=== PATIENT | female | born 1990 | race Caucasian/White ===

== ENCOUNTER 2024-02-04 18:16 | Inpatient (IN) | payer OTHER ==
[~2024-02-04] VITALS: Ht 157.5 cm; Wt 69.3 kg
[2024-02-04 21:00] VITALS: BP 118/68; PULSE 105; RESP 19; TEMP 99; O2SAT 99
[2024-02-04 21:41] VITALS: PULSE 77; RESP 18; O2SAT 95
[2024-02-04] MEDS ORDERED: THIA100T10 GT (22:05)
[2024-02-04] MEDS ORDERED: SPIR25TA8 PO (22:05)
[2024-02-04] MEDS ORDERED: FOLI-119 PO (22:05)
[2024-02-05] VITALS (10 sets, daily range): BP systolic 99–112; BP diastolic 54–70; PULSE 72–95; RESP 16–18; TEMP 97.1–98.2; O2SAT 95–98
[2024-02-05] MEDS ORDERED: IBUPROFEN 600 MG TAB PO PRN (05:00)
[2024-02-05] MEDS ORDERED: DOCUSATE SOD 100 MG CAP PO PRN (05:00)
[2024-02-05] MEDS ORDERED: NITROGLYCERIN 0.4 MG SL TAB SL PRN (05:00)
[2024-02-05] MEDS ORDERED: MORPHINE SULFATE INJ 2 MG/ml SYRG IV PRN (05:00)
[2024-02-05] MEDS ORDERED: ONDANSETRON HCL 4 MG/2 ML VIAL IV PRN (05:00)
[2024-02-05 05:59] LABS: Eosinophils # (auto) 0.1 10 ^3/uL (0-0.8); Red Cell Distribution Width 15.9 % (11.8-14.3); White Blood Cell 4.9 10^3/uL (4.4-10.8)
[2024-02-05 06:02] LABS: Basophils # (auto) 0.1 10 ^3/uL (0-0.2); Basophils % (auto) 1.1 % (0.0-2.0); Eosinophils % (auto) 2.8 % (0.0-7.0); Hematocrit 20.7 % (36.0-46.0); Lymphocytes # (auto) 1.8 10 ^3/uL (0.4-5.4); Mean Corpuscular Hgb Conc. 32.9 g/dL (32.0-36.0); Mean Corpuscular Volume 106.3 fL (80.0-100.0); Monocytes # (auto) 0.9 10 ^3/uL (0-1.3); Monocytes % (auto) 17.6 % (0.0-12.0); Neutrophils % (auto) 41.5 % (37.0-80.0); Red Blood Cells 1.95 10^6/uL (4.0-5.20)
[2024-02-05 06:16] LABS: Alanine Aminotransferase 31 U/L (7-40); Albumin 2.9 g/dL (3.2-4.8); Alkaline Phosphatase 97 U/L (46-116); Anion Gap 4 (5-15); Aspartate Aminotransferase 85 U/L (13-40); Calcium 8.5 mg/dL (8.7-10.4); Carbon Dioxide 28 mmol/L (20-30); Chloride 100 mmol/L (98-107); Glucose 92 mg/dL (74-106); Potassium 3.6 mmol/L (3.5-5.1); Sodium 132 mmol/L (136-145)
[2024-02-05 06:17] LABS: Bilirubin, Total 2.1 mg/dL (0.2-1.0); Total Protein 5.6 g/dL (5.7-8.2)
[2024-02-05 06:18] LABS: Hemoglobin 6.8 g/dL (12.2-16.2)
[2024-02-05 06:20] LABS: BUN/Creatinine Ratio 7.7 (10.0-20.0); Blood Urea Nitrogen < 5 mg/dL (9-23)
[2024-02-05 06:46] LABS: Anisocytosis Slight; Hypochromia Moderate; Macrocytosis Slight; Platelet Estimate Adequate; Target Cell FEW
[2024-02-05 07:43] LABS: Beta HCG, Quantitative 0.5 mIU/mL (1.5-4.2)
[2024-02-05 07:44] LABS: Thyroid Stimulating Hormone 1.6 uIU/mL (0.55-4.78)
[2024-02-05] MEDS: SODIUM CHLORIDE 0.9% 1,000 ML IV SCH (07:46)
[2024-02-05 07:56] LABS: Blood Alcohol < 3.0 mg/dL (<10); Triglycerides 50 mg/dL (< 150)
[2024-02-05 07:57] LABS: LDL Cholesterol 94 mg/dL (< 100)
[2024-02-05 07:58] LABS: Cholesterol 170 mg/dL (< 200); HDL Cholesterol 50 mg/dL (40-59)
[2024-02-05 08:16] LABS: INR 1.34 (0.9-1.15); Partial Thromboplastin Time 29.3 SEC (24.5-34.5); Prothrombin Time 13.9 sec (9.3-11.8)
[2024-02-05 08:59] LABS: Lipase 93 U/L (12-53)
[2024-02-05] MEDS: HYDROcodone-ACET 5/325MG TAB PO PRN (09:46)
[2024-02-05] MEDS: PANTOPRAZOLE 40 MG/10 ML VIAL INJ IV ONE ×2 (11:34→11:45)
[2024-02-05] MEDS: FOLIC ACID 1 MG TAB PO ONE (11:35)
[2024-02-05] MEDS: SPIRONOLACTONE 25 MG TAB PO ONE ×2 (11:35→22:35)
[2024-02-05] MEDS: OCTREOTIDE ACETATE 500 MCG in SODIUM CHL 0.9% 99 ML IV SCH (11:45)
[2024-02-05] MEDS: FUROSEMIDE 20 MG/2 ML VIAL IV ONE ×2 (11:45→16:51)
[2024-02-05] MEDS: OCTREOTIDE ACETATE 100 MCG in SODIUM CHL 0.9% 50 ML IV ONE (11:45)
[2024-02-05 18:38] LABS: Hemoglobin 8.7 g/dL (12.2-16.2)
[2024-02-05 22:17] LABS: Hematocrit 25.5 % (36.0-46.0); Hemoglobin 8.4 g/dL (12.2-16.2)
[2024-02-05] MEDS: PANTOPRAZOLE 40 MG/10 ML VIAL INJ IV SCH (22:35)
[2024-02-05] MEDS: cefTRIAXone 1GM/50ML D5W 50 ML IV ONE (22:35)
[2024-02-06] VITALS (10 sets, daily range): BP systolic 86–106; BP diastolic 47–62; PULSE 16–103; RESP 14–22; TEMP 97.8–98.3; O2SAT 95–100
[2024-02-06 06:03] LABS: Basophils # (auto) 0.1 10 ^3/uL (0-0.2); Eosinophils # (auto) 0.2 10 ^3/uL (0-0.8); Monocytes # (auto) 0.8 10 ^3/uL (0-1.3); Monocytes % (auto) 16.7 % (0.0-12.0); Neutrophils # (auto) 1.6 10 ^3/uL (1.6-8.6)
[2024-02-06 06:05] LABS: Basophils % (auto) 1.8 % (0.0-2.0); Eosinophils % (auto) 3.9 % (0.0-7.0); Hematocrit 25.9 % (36.0-46.0); Hemoglobin 8.6 g/dL (12.2-16.2); Lymphocytes # (auto) 2.2 10 ^3/uL (0.4-5.4); Lymphocytes % (auto) 44.8 % (10.0-50.0); Mean Corpuscular Hemoglobin 33.6 pg (28.0-32.0); Neutrophils % (auto) 32.8 % (37.0-80.0); Nucleated Red Blood Cells % 0.2 %; Red Blood Cells 2.54 10^6/uL (4.0-5.20); Red Cell Distribution Width 19.1 % (11.8-14.3)
[2024-02-06 06:16] LABS: Alanine Aminotransferase 27 U/L (7-40); Albumin 2.7 g/dL (3.2-4.8); Alkaline Phosphatase 73 U/L (46-116); Anion Gap 3 (5-15); Aspartate Aminotransferase 73 U/L (13-40); Calcium 8.4 mg/dL (8.7-10.4); Carbon Dioxide 29 mmol/L (20-30); Chloride 101 mmol/L (98-107); Glucose 118 mg/dL (74-106); Magnesium 1.9 mg/dL (1.6-2.6); Potassium 4.2 mmol/L (3.5-5.1); Sodium 133 mmol/L (136-145)
[2024-02-06 06:17] LABS: Bilirubin, Total 2.7 mg/dL (0.2-1.0); Total Protein 5.3 g/dL (5.7-8.2)
[2024-02-06 06:21] LABS: BUN/Creatinine Ratio 7.1 (10.0-20.0); Blood Urea Nitrogen < 5 mg/dL (9-23)
[2024-02-06] MEDS: OMNIPAQUE 12mg/ml 500ml ORAL SOLUTION PO ONE (07:15)
[2024-02-06] MEDS: cefTRIAXone 1GM/50ML D5W 50 ML IV SCH (08:51)
[2024-02-06] MEDS: FUROSEMIDE 20 MG/2 ML VIAL IV SCH (10:00)
[2024-02-06] MEDS ORDERED: PANTOPRAZOLE 40 MG/10 ML VIAL INJ IV SCH (10:00)
[2024-02-06] MEDS ORDERED: FUROSEMIDE 20 MG/2 ML VIAL IV SCH (10:00)
[2024-02-06] MEDS ORDERED: SPIRONOLACTONE 25 MG TAB PO SCH ×2 (10:00)
[2024-02-06 10:07] LABS: Hematocrit 25.3 % (36.0-46.0); Hemoglobin 8.2 g/dL (12.2-16.2)
[2024-02-06] MEDS: SPIRONOLACTONE 25 MG TAB PO SCH (11:16)
[2024-02-06] MEDS: FOLIC ACID 1 MG TAB PO SCH (11:16)
[2024-02-06] MEDS: THIAMINE HCL 100 MG TAB PO SCH (11:16)
[2024-02-06] MEDS ORDERED: IOHEXOL 300 MG/ML 100ML BOTTLE IJ ONE (12:59)
[2024-02-06] MEDS ORDERED: ALBUMIN 25% 50 ML IV SCH (14:15)
[2024-02-06] MEDS ORDERED: PROPOFOL 10 MG/ML 20 ML IV ONE (15:24)
[2024-02-06] MEDS ORDERED: MIDAZOLAM HCL 2MG/2ML 2ml VIAL (1mg/ml) ONE ×2 (15:24→16:15)
[2024-02-06] MEDS: ONDANSETRON HCL 4 MG/2 ML VIAL IV ONE (15:30)
[2024-02-06 22:26] LABS: Hematocrit 28.8 % (36.0-46.0); Hemoglobin 9.2 g/dL (12.2-16.2)
[2024-02-07] VITALS (8 sets, daily range): BP systolic 85–122; BP diastolic 58–77; PULSE 16–105; RESP 12–20; TEMP 97.3–98.2; O2SAT 95–100
[2024-02-07 05:09] LABS: White Blood Cell 5.5 10^3/uL (4.4-10.8)
[2024-02-07 05:11] LABS: Band Neutrophils % (manual) 0; Basophils % (manual) 0 (0.0-2.0); Blast Cells 0; Hematocrit 25.2 % (36.0-46.0); Hemoglobin 8.3 g/dL (12.2-16.2); Mean Corpuscular Hemoglobin 33.4 pg (28.0-32.0); Mean Corpuscular Hgb Conc. 32.9 g/dL (32.0-36.0); Mean Corpuscular Volume 101.7 fL (80.0-100.0); Metamyelocytes % 0; Myelocytes % 0; Promyelocytes % 0; Reactive Lymphocytes 0; Red Blood Cells 2.48 10^6/uL (4.0-5.20); Red Cell Distribution Width 18.9 % (11.8-14.3)
[2024-02-07 05:18] LABS: Alanine Aminotransferase 25 U/L (7-40); Albumin 2.5 g/dL (3.2-4.8); Alkaline Phosphatase 83 U/L (46-116); Anion Gap 6 (5-15); Aspartate Aminotransferase 62 U/L (13-40); Calcium 7.9 mg/dL (8.7-10.4); Carbon Dioxide 25 mmol/L (20-30); Chloride 104 mmol/L (98-107); Glucose 105 mg/dL (74-106); Potassium 4.2 mmol/L (3.5-5.1); Sodium 135 mmol/L (136-145)
[2024-02-07 05:19] LABS: Bilirubin, Total 1.5 mg/dL (0.2-1.0); Total Protein 5.2 g/dL (5.7-8.2)
[2024-02-07 05:35] LABS: BUN/Creatinine Ratio 6.8 (10.0-20.0); Blood Urea Nitrogen < 5 mg/dL (9-23)
[2024-02-07 06:55] LABS: Eosinophils % (manual) 5 (0-7); Monocytes % (manual) 18 (0-12)
[2024-02-07 06:56] LABS: Anisocytosis Slight; Lymphocytes % (manual) 25 (10.0-50.0); Macrocytosis Slight; Platelet Estimate Adequate
[2024-02-07 08:49] LABS: Hepatitis B Surface Antigen Negative (Negative)
[2024-02-07 09:12] LABS: Hepatitis C Antibody Negative (Negative)
[2024-02-07 09:17] LABS: Folate (Folic Acid) 15.58 ng/mL (>5.38)
[2024-02-07 10:42] LABS: Hemoglobin 9.2 g/dL (12.2-16.2)
[2024-02-07 10:44] LABS: Hematocrit 28.6 % (36.0-46.0)
[2024-02-07] MEDS: LACTULOSE 20Gm/30ML SOLN PO PRN (14:53)
[2024-02-07 22:53] LABS: Hematocrit 26.4 % (36.0-46.0); Hemoglobin 8.7 g/dL (12.2-16.2)
[2024-02-08] VITALS (7 sets, daily range): BP systolic 101–124; BP diastolic 64–80; PULSE 73–85; RESP 16–18; TEMP 36.5; O2SAT 94–99
[2024-02-08 07:38] LABS: Alanine Aminotransferase 20 U/L (7-40); Albumin 2.6 g/dL (3.2-4.8); Alkaline Phosphatase 93 U/L (46-116); Anion Gap 5 (5-15); Aspartate Aminotransferase 58 U/L (13-40); Calcium 8.1 mg/dL (8.7-10.4); Carbon Dioxide 27 mmol/L (20-30); Chloride 106 mmol/L (98-107); Glucose 110 mg/dL (74-106); Potassium 4.4 mmol/L (3.5-5.1); Sodium 138 mmol/L (136-145)
[2024-02-08 07:39] LABS: Bilirubin, Total 1.4 mg/dL (0.2-1.0)
[2024-02-08 07:43] LABS: BUN/Creatinine Ratio 6.9 (10.0-20.0); Blood Urea Nitrogen < 5 mg/dL (9-23)
[2024-02-08 07:50] LABS: Hematocrit 25.4 % (36.0-46.0); Hemoglobin 8.1 g/dL (12.2-16.2); Mean Corpuscular Hemoglobin 32.5 pg (28.0-32.0); Mean Corpuscular Hgb Conc. 31.8 g/dL (32.0-36.0); Mean Corpuscular Volume 102.3 fL (80.0-100.0); Red Blood Cells 2.49 10^6/uL (4.0-5.20); White Blood Cell 4.5 10^3/uL (4.4-10.8)
[2024-02-08 07:52] LABS: Band Neutrophils % (manual) 0; Basophils % (manual) 0 (0.0-2.0); Blast Cells 0; Metamyelocytes % 0; Myelocytes % 0; Promyelocytes % 0; Reactive Lymphocytes 0
[2024-02-08 09:19] LABS: Eosinophils % (manual) 3 (0-7); Lymphocytes % (manual) 29 (10.0-50.0); Monocytes % (manual) 19 (0-12); Platelet Estimate Adequate
[2024-02-08] MEDS: FUROSEMIDE 40 MG TAB PO SCH (09:58)
[2024-02-08 13:21] LABS: Hematocrit 27.8 % (36.0-46.0)
[2024-02-08] MEDS ORDERED: FURO40TA4 PO (15:42)
[2024-02-08] MEDS ORDERED: SPIR25TA PO (15:42)
[2024-02-09 12:47] LABS: Anti-Nuclear Antibody Direct Negative (Negative)
== END 2024-02-08 18:50 | disposition home or self-care (01) | DRG 432 ==
LOC: WEST WING 21:00 → TELE-WESTW 02-05 07:45
PROVIDERS: ADMIT Internal Medicine Pulmonary Disease; ATTEND Internal Medicine Pulmonary Disease
PROC: 30233N1 Transfusion of Nonautologous Red Blood Cells into Peripheral Vein, Percutaneous Approach (ICD-10-PCS; principal; 2024-02-05)
PROC: 0DB68ZX Excision of Stomach, Via Natural or Artificial Opening Endoscopic, Diagnostic (ICD-10-PCS; 2024-02-06)
DX: K70.31 Alcoholic cirrhosis of liver with ascites (principal); I85.11 Secondary esophageal varices with bleeding; D68.9 Coagulation defect, unspecified; E44.0 Moderate protein-calorie malnutrition; K29.70 Gastritis, unspecified, without bleeding; E80.6 Other disorders of bilirubin metabolism; F17.210 Nicotine dependence, cigarettes, uncomplicated; R74.01 Elevation of levels of liver transaminase levels; D53.9 Nutritional anemia, unspecified; Z68.27 Body mass index [BMI] 27.0-27.9, adult; Z79.899 Other long term (current) drug therapy
CPT/HCPCS: 36415; 71045; 74177; 76705; 80053; 80061; 80320; 82140; 82248; 82607; 82728; 82746; 83540; 83550; 83615; 83690; 83735; 84443; 84702; 85007; 85014; 85018; 85025; 85027; 85045; 85610; 85730; 86038; 86703; 86803; 86850; 86900; 86901; 86920; 87081; 87340; G0378; J2250; J2470; J2704

== ENCOUNTER 2024-07-17 18:28 | Inpatient (IN) | payer OTHER ==
[~2024-07-17] VITALS: Ht 157.5 cm; Wt 58.3 kg
[~2024-07-17 18:28] MED LIST: FOLI-119 PO; FURO40TA4 PO; SPIR25TA PO; THIA100T10 GT
--- NOTE | 2024-07-17 18:45 | ED.PDOC ---
GI ASSESSMENT HPI Comments 33-year-old female presents to the ED via EMS for a chief complaint of nausea and vomiting associated with abdominal pain. Patient was taken [facility] and transported to this ED for higher level care. Patient admits to drinking gin last night and woke up with nausea and dark red, coffee ground emesis that started at 9:30am. Patient admits to drinking Gin daily. She denies any other symptoms or pain at this time. No substance use reported. Patient reports that she has had multiple endoscopies, last one was about 3-6 months ago at [facility] to repair a tear. Patient also reports absence of her menstrual cycle for three years now. Patient had the following work up done at [facility]: - Chest X ray with no active pulmonary disease - Diagnose of GI bleed, hypomagnesium, ETOH withdrawal, nausea and vomiting - Patient was given the following: magnesium 2 grams, Protonix 80mg IV, Octreotide bolus 50mcg, Thiamine, Normal saline, and 2mg of Ativan - Patient's following lab results: HGB of 11.6, Hematocrit of 34.2, Platelet count of 109, CIWA 15, INR 1.79, ALT 48, AST of 48, and Alcohol level of 173. - test was negative Patient's home prescriptions included: Lasix, spirolactone Upon arrival to our facility with the nursing staff from the outside facility, patient was noted to have another episode of hematemesis here in the ED. patient was tachycardic and pale and weak. Patient was consented for blood transfusion. Past medical history: Anemia, liver cirrhosis, multiple blood transfusions, abnormal pap smear, and insomnia Past surgical history: Endoscopies Vital signs Blood pressure: 116/63 Temperature: 98.7 F Heart rate: 110 SpO2: 96% RA RR: 18 mathis, HPI: Poor Historian. REVIEW OF SYSTEMS: CONSTITUTIONAL: Denies acute: fever, diaphoresis, chills, HEAD: Denies acute: headache, photophobia Eyes: Denies acute: Double vision, vision loss, eye pain, eye discharge. EARS: Denies acute: tinnitus, hearing loss, ear discharge, ear pain, THROAT: Denies acute: sore throat, swelling, difficulty swallowing , pain with swallowing, change in voice. NECK: Denies acute: neck pain, neck swelling, stiff neck. HEART: Denies acute : chest pain, palpitations, LUNGS: Denies acute: SOB, wheezing, cough, hemoptysis ABDOMEN: Denies acute: diarrhea, melena , , hematochezia SKIN: Denies acute: rash, redness, lesions, itchiness. EXTREMITIES: Denies acute: calf pain, numbness, tingling, weakness, denies pain in extremity. Denies acute: Low back pain. Neuro: Denies acute: focal neurological deficit, motor or sensory focal neurological deficit, tremors, seizure like activity, confusion, dizziness, change in mental status, loss of bowel or bladder function, cauda equina like symptoms. : Denies acute: dysuria, hematuria, flank pain, increase in urinary frequency. PSYCH: Denies acute: hallucination, suicidal ideation, homicidal ideation. FEMALE: Denies acute: abnormal vaginal bleeding, foul odor, unusual discharge. PHYSICAL EXAM: General: no acute distress, awake and alert. Head: normocephalic, atraumatic. Neck: supple, trachea is midline, no swelling. Throat: Normal phonation. Eyes:, no erythema, no purulent discharge, no proptosis, no icterus. Heart: regular tachycardic, no significant murmur appreciated. Lungs: no apparent respiratory distress, Able to speak in full sentences. No wheezing, no rhonchi, no crackles. No stridors Clear to auscultation bilaterally. Abdomen: Minimal epigastric tender to palpation, non distended, soft, no guarding, no rebound, + bowel sounds. Neuro: Awake, Alert, oriented to name, self, situation, follows commands GCS=15. Speech is normal. Skin: no petechia, no purpura, no cyanosis, noted-pale, not jaundice. Lower extremities: --no - Pitting edema no deformity, no focal swelling, no calf TTP. Makes eye contact. moves all four extremities. Face: no apparent facial droop. 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, Allergies Allergies: Coded Allergies: NO KNOWN ALLERGIES (Unverified , 02/04/24) Home Meds Active Scripts Spironolactone (Aldactone) 25 Mg Tab, 100 MG PO DAILY for 30 Days, #120 TAB 2 Refills Prov:JOSE KO RESIDENT 02/08/24 Furosemide (Furosemide) 40 Mg Tab, 40 MG PO DAILY for 30 Days, #30 TAB 2 Refills Prov:JOSE KO RESIDENT 02/08/24 Reported Medications Thiamine Hcl (VITAMIN B-1) 100 Mg Tb, 100 MG GT, TAB 02/04/24 Folic Acid (Folic Acid) 1 Mg Tab, 1 MG PO, TAB 02/04/24 Information Source: Patient, Emergency Med Personnel Mode of Arrival: EMS Timing: Days Duration: Since onset Past Medical History PAST MEDICAL HISTORY: Anemia, Liver Past Medical History (Other): Blood transfusions Surgical History (Other): Endoscopies 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 Was a procedure done?: No GI differential Dx Differential Diagnosis: Bowel Obstruction, Esophageal rupture, Esophagitis, Gastritis/PUD, Gastroenteritis, GI hemorrhage, Hepatitis, Inflammatory BD, Ischemic Bowel, Pancreatitis, Dehydration, Electrolyte Imbalance, Hypovolemia, Ischemic Bowel, Anemia, Esophageal Varicies, Stress Ulcer, Other X-Ray, Labs, Meds, VS Vital Signs Date Time Temp Pulse Resp B/P (MAP) Pulse Ox O2 Delivery O2 Flow Rate FiO2 07/17/24 18:49 98.7 110 18 116/63 (80) 96 Lab Test 07/17/24 18:58 Range/Units White Blood Count 7.5 4.4-10.8 10^3/uL Red Blood Count 2.62 L 4.0-5.20 10^6/uL Hemoglobin 9.1 L 12.2-16.2 g/dL Hematocrit 26.8 L 36.0-46.0 % Mean Corpuscular Volume 102.4 H 80.0-100.0 fL Mean Corpuscular Hemoglobin 34.9 H 28.0-32.0 pg Mean Corpuscular Hemoglobin Concent 34.1 32.0-36.0 g/dL Red Cell Distribution Width 18.4 H 11.8-14.3 % Platelet Count 93 L 140-450 10^3/uL Mean Platelet Volume 8.1 6.9-10.8 fL Neutrophils (%) (Auto) 64.1 37.0-80.0 % Lymphocytes (%) (Auto) 20.3 10.0-50.0 % Monocytes (%) (Auto) 14.2 H 0.0-12.0 % Eosinophils (%) (Auto) 0.2 0.0-7.0 % Basophils (%) (Auto) 1.2 0.0-2.0 % Neutrophils # (Auto) 4.8 1.6-8.6 10 ^3/uL Lymphocytes # (Auto) 1.5 0.4-5.4 10 ^3/uL Monocytes # (Auto) 1.1 0-1.3 10 ^3/uL Eosinophils # (Auto) 0 0-0.8 10 ^3/uL Basophils # (Auto) 0.1 0-0.2 10 ^3/uL Nucleated Red Blood Cells 0.0 % Prothrombin Time 14.7 H 9.3-11.8 sec Prothrombin Time INR 1.44 H 0.9-1.15 Activated Partial Thromboplast Time 32.7 24.5-34.5 SEC Sodium Level 136 136-145 mmol/L Potassium Level 4.4 3.5-5.1 mmol/L Chloride Level 103 98-107 mmol/L Carbon Dioxide Level 24 20-31 mmol/L Anion Gap 9 5-15 Blood Urea Nitrogen 15 9-23 mg/dL Creatinine 0.73 0.550-1.02 mg/dL Glomerular Filtration Rate Calc 110 >90 mL/min BUN/Creatinine Ratio 20.5 H 10.0-20.0 Serum Glucose 121 H 74-106 mg/dL Lactic Acid Level 3.7 *H 0.4-2.0 mmol/L Calcium Level 7.6 L 8.7-10.4 mg/dL Magnesium Level 2.1 1.6-2.6 mg/dL Total Bilirubin 2.7 H 0.2-1.0 mg/dL Aspartate Amino Transferase (AST) 193 H 13-40 U/L Alanine Aminotransferase (ALT) 40 7-40 U/L Alkaline Phosphatase 69 46-116 U/L Troponin I High Sensitivity 16 </=34 ng/L Total Protein 5.6 L 5.7-8.2 g/dL Albumin 3.2 3.2-4.8 g/dL Lipase 62 H 12-53 U/L Plasma/Serum Blood Alcohol 24.9 H <10 mg/dL [facility] [id number] [facility] [address] Ph: [phone] DIAGNOSTIC IMAGING Diagnostic Imaging Report : [id number] Signed PATIENT: KEYUR MATHIS ACCT: [id number] UNIT: [id number] : 1990 LOC: ER ROOM / BED: / AGE / SEX: 33 / F ADM STATUS: REG ER SERVICE 1841 ORDERING PHYSICIAN: AINSLEY MENON DO PROCEDURE(s): CXRP - CHEST PORTABLE REASON: tachy, hematemesis, ORDER NUMBER(s): [id number], ACCESSION NUMBER(s): [id number] EXAM: XR Chest, 1 View CLINICAL INDICATION: tachy, hematemesis, TECHNIQUE: Frontal view of the chest. COMPARISON: XY CHEST PORTABLE on DOS: 02/05/24 FINDINGS: LUNGS AND PLEURAL SPACES: Unremarkable. No consolidation. No pneumothorax. HEART: Unremarkable. No cardiomegaly. MEDIASTINUM: Unremarkable. Normal mediastinal contour. BONES/JOINTS: Unremarkable. No acute fracture. OTHER FINDINGS: . . . IMPRESSION: No acute cardiopulmonary process. HS:Y ATED BY: EZRA DUFFY MD DICTATED DATE/TIME: 07/17/241916 SIGNED BY: EZRA DUFFY MD SIGNED DATE/TIME: 07/17/241916 CC: [place] [address] Ph: [phone] DIAGNOSTIC IMAGING Diagnostic Imaging Report : [id number] Signed with Tamia PATIENT: KEYUR MATHIS ACCT: [id number] UNIT: [id number] : 1990 LOC: TELE ROOM / BED: [address] [place] [address] AGE / SEX: 33 / F ADM STATUS: ADM IN SERVICE 210 ORDERING PHYSICIAN: AINSLEY MENON DO PROCEDURE(s): ABDL - ABDOMEN LIMITED REASON: hyperbili ORDER NUMBER(s): [id number], ACCESSION NUMBER(s): [id number] ADDENDUM ADDENDUM # 1 HS:Y ORIGINAL REPORT INDICATION: hyperbili TECHNIQUE: Multiple real-time sonographic images of the abdomen were obtained. COMPARISON: US ABDOMEN LIMITED on DOS: 02/07/24, US LIVER on DOS: 02/05/24 FINDINGS: Hepatic parenchyma suggests steatosis The liver measures 18.6 cm. No intrahepatic biliary ductal dilatation is noted. The gallbladder wall measures 0.29 cm and is unremarkable. Mobile stones and sludge. The common duct measures 0.5 cm and is unremarkable. No pericholecystic fluid is noted. Negative ultrasound Larkin's sign is elicited. The right kidney measures 9.4 cm. No hydronephrosis. The pancreas is normal by ultrasound IMPRESSION: 1. 18.6 cm liver with changes in the parenchyma suggesting steatosis. 2. Cholelithiasis and sludge. Negative ultrasound Larkin's sign is elicited. ATED BY: JOSSELYN JOYCE Jr., DO DICTATED DATE/TIME: 07/17/242332 SIGNED BY: JOSSELYN JOYCE Jr., DO SIGNED DATE/TIME: 07/17/242332 CC: INDICATION: hyperbili TECHNIQUE: Multiple real-time sonographic images of the abdomen were obtained. COMPARISON: US ABDOMEN LIMITED on DOS: 02/07/24, US LIVER on DOS: 02/05/24 FINDINGS: Hepatic parenchyma suggests steatosis The liver measures 18.6 cm. No intrahepatic biliary ductal dilatation is noted. The gallbladder wall measures 0.29 cm and is unremarkable. Mobile stones and sludge. The common duct measures 0.5 cm and is unremarkable. No pericholecystic fluid is noted. Negative ultrasound Larkin's sign is elicited. The right kidney measures 9.4 cm. No hydronephrosis. The pancreas is normal by ultrasound IMPRESSION: 1. 18.6 cm liver with changes in the parenchyma suggesting steatosis. 2. Cholelithiasis and sludge. Negative ultrasound Larkin's sign is elicited. ATED BY: JOSSELYN JOYCE Jr., DO DICTATED DATE/TIME: 07/17/242312 SIGNED BY: JOSSELYN JOYCE Jr., SIGNED DATE/TIME: 07/17/242312 CC: Time of 1ST Reevaluation: 18:41 Reevaluation 1ST: Unchanged Patient Education/Counseling: Diagnosis, Treatment Family Education/Counseling: No Family Present Comments Patient presented with the above HPI. abdominal pain workup was initiated. patient was found with the above mentioned diagnosis. the following medications were ordered: zofran, pantoprazole, morphine, NTG, IV fluids, octreotide acetate the following tests were ordered: LA, drug screen, blood alcohol, CMP, CBC, US abdomen, CXR Patient ED course and VS have been stabilized. Patient has been reassessed in the ED and remained in a stable condition. Pertinent incidental findings were discussed with the patient and/or family. Patient/family voices understanding and is agreeable with plan. Patient has been observed in the ED adequate length of time to insure im provement/stability. Escalation of care considered: Consideration of escalation to observation or admission Patient was ADMITTED to the medicine team for further evaluation and treatment of their presentation. All the reports of any imaging studies that were ordered by myself were reviewed by myself. Departure 1 Departure Time of Disposition: 19:17 Impression: Primary Impression: GI bleed Additional Impressions: Hematemesis Alcohol abuse Anemia Liver cirrhosis Thrombocytopenia Disposition: 09 ADMITTED INPATIENT Admit to: Tele Condition: Guarded Discharged With: Self Critical Care Note Critical Care Time?: Yes (1 hr-critical care time only) I personally scribed for AINSLEY MENON DO ([email or web address]) on 07/17/24 at 18:45. Electronically submitted by Teena Miller ([employer]). I personally scribed for AINSLEY MENON DO ([email or web address]) on 07/17/24 at 19:31. Electronically submitted by Teena Miller ([employer]). I personally scribed for AINSLEY MENON DO ([email or web address]) on 07/17/24 at 22:11. Electronically submitted by Chet Milian ([email or web address]). I personally scribed for AINSLEY MENON DO ([email or web address]) on 07/17/24 at 22:12. Electronically submitted by Chet Milian ([email or web address]). I personally scribed for AINSLEY MENON DO ([email or web address]) on 07/18/24 at 01:11. Electronically submitted by Chet Milian ([email or web address]). I personally scribed for AINSLEY MENON DO ([email or web address]) on 07/18/24 at 01:43. Electronically submitted by Chet Milian ([email or web address]). AINSLEY MENON DO Jul 17, 2024 18:45
--- NOTE | 2024-07-17 19:19 | DVH ---
EXAM: XR Chest, 1 View CLINICAL INDICATION: tachy, hematemesis, TECHNIQUE: Frontal view of the chest. COMPARISON: XY CHEST PORTABLE on DOS: 02/05/24 FINDINGS: LUNGS AND PLEURAL SPACES: Unremarkable. No consolidation. No pneumothorax. HEART: Unremarkable. No cardiomegaly. MEDIASTINUM: Unremarkable. Normal mediastinal contour. BONES/JOINTS: Unremarkable. No acute fracture. OTHER FINDINGS: . . . IMPRESSION: No acute cardiopulmonary process. HS:Y
[2024-07-17 19:25] LABS: Basophils # (auto) 0.1 10 ^3/uL (0-0.2); Eosinophils # (auto) 0 10 ^3/uL (0-0.8); Eosinophils % (auto) 0.2 % (0.0-7.0); Neutrophils # (auto) 4.8 10 ^3/uL (1.6-8.6); Red Blood Cells 2.62 10^6/uL (4.0-5.20)
[2024-07-17 19:26] LABS: Basophils % (auto) 1.2 % (0.0-2.0); Hematocrit 26.8 % (36.0-46.0); Hemoglobin 9.1 g/dL (12.2-16.2); Lymphocytes # (auto) 1.5 10 ^3/uL (0.4-5.4); Lymphocytes % (auto) 20.3 % (10.0-50.0); Mean Corpuscular Hemoglobin 34.9 pg (28.0-32.0); Mean Corpuscular Hgb Conc. 34.1 g/dL (32.0-36.0); Mean Corpuscular Volume 102.4 fL (80.0-100.0); Monocytes # (auto) 1.1 10 ^3/uL (0-1.3); Monocytes % (auto) 14.2 % (0.0-12.0); Neutrophils % (auto) 64.1 % (37.0-80.0); Platelet Count (auto) 93 10^3/uL (140-450); Red Cell Distribution Width 18.4 % (11.8-14.3); White Blood Cell 7.5 10^3/uL (4.4-10.8)
[2024-07-17 19:41] LABS: Alkaline Phosphatase 69 U/L (46-116); Anion Gap 9 (5-15); BUN/Creatinine Ratio 20.5 (10.0-20.0); Blood Alcohol 24.9 mg/dL (<10); Blood Urea Nitrogen 15 mg/dL (9-23); Carbon Dioxide 24 mmol/L (20-31); Chloride 103 mmol/L (98-107); Magnesium 2.1 mg/dL (1.6-2.6); Potassium 4.4 mmol/L (3.5-5.1)
[2024-07-17 19:43] LABS: Alanine Aminotransferase 40 U/L (7-40); Albumin 3.2 g/dL (3.2-4.8); Aspartate Aminotransferase 193 U/L (13-40); Bilirubin, Total 2.7 mg/dL (0.2-1.0); Calcium 7.6 mg/dL (8.7-10.4); Glucose 121 mg/dL (74-106); Sodium 136 mmol/L (136-145); Total Protein 5.6 g/dL (5.7-8.2)
[2024-07-17 19:45] LABS: Lactic Acid w/Reflex 3.7 mmol/L (0.4-2.0)
[2024-07-17] MEDS ORDERED: MORPHINE SULFATE INJ 2 MG/ml SYRG IV PRN (19:45)
[2024-07-17] MEDS ORDERED: ONDANSETRON HCL 4 MG/2 ML VIAL IV PRN (19:45)
[2024-07-17] MEDS ORDERED: NITROGLYCERIN 0.4 MG SL TAB SL PRN (19:45)
[2024-07-17 20:04] LABS: Lipase 62 U/L (12-53)
[2024-07-17 21:10] LABS: INR 1.44 (0.9-1.15); Partial Thromboplastin Time 32.7 SEC (24.5-34.5); Prothrombin Time 14.7 sec (9.3-11.8)
--- NOTE | 2024-07-17 22:06 | DVHHP2 ---
History of Present Illness Reason for Visit: GI bleed History of Present Illness 33 old female presents for GI bleed. Patient presented to outside facility with complaints one day history vomiting blood. Patient with a history of alcoholic liver cirrhosis reports drinking alcohol since yesterday. Today she had multiple episodes of hematemesis. She states having a blood transfusion a month ago. Denies melena. No cardiac or respiratory complaints. Past Medical History Liver cirrhosis Past Surgical History Denies Family History Noncontributory Smoke: No ALCOHOL: heavy Drugs: None Lives: with Family Review of Systems Review of Systems Review of systems are currently negative otherwise addressed in HPI. Allergies: Coded Allergies: NO KNOWN ALLERGIES (Unverified , 02/04/24) Medications Current Medications Medications Dose Ordered Sig/Hien Route Start Time Stop Time Status Last Admin Dose Admin Octreotide Acetate 500 mcg/ Sodium Chloride 100 ml @ 10 mls/hr Q10H IV 07/17/24 18:45 UNV Sodium Chloride 1,000 ml @ 80 mls/hr [id number] IV 07/17/24 19:45 UNV Ondansetron HCl 4 mg Q4HP PRN IV 07/17/24 19:45 UNV Nitroglycerin 0.4 mg Q5MINP PRN SL 07/17/24 19:45 UNV Morphine Sulfate 2 mg Q30M PRN IV 07/17/24 19:45 UNV Exam Vital Signs Vital Signs Date Time Temp Pulse Resp B/P (MAP) Pulse Ox O2 Delivery O2 Flow Rate FiO2 07/17/24 20:14 122 07/17/24 18:49 98.7 18 116/63 (80) 96 Exam Gen: 33-year-old female in mild distress. Skin: Warm, dry, normal color and texture, no rash. HEENT: Normocephalic atraumatic, mucous membranes moist and pink. Neck: Cervical and supraclavicular nodes normal without enlargement, trachea is midline, thyroid gland is normal without masses. Pulmonary: Clear to auscultation and percussion bilaterally. Cardiac: Sinus tachycardia Abdomen: Soft, nontender, nondistended, bowel sounds present all 4 quadrants, no guarding, no rigidity, no organomegaly. Extremities: No cyanosis, clubbing, no edema Neuro: Cranial nerves II through XII grossly intact, normal affect and speech, no focal motor deficits. Labs/Xrays ORDERING PHYSICIAN: AINSLEY MENON DO PROCEDURE(s): CXRP - CHEST PORTABLE REASON: tachy, hematemesis, ORDER NUMBER(s): [id number], ACCESSION NUMBER(s): [id number] EXAM: XR Chest, 1 View CLINICAL INDICATION: tachy, hematemesis, TECHNIQUE: Frontal view of the chest. COMPARISON: XY CHEST PORTABLE on DOS: 02/05/24 FINDINGS: LUNGS AND PLEURAL SPACES: Unremarkable. No consolidation. No pneumothorax. HEART: Unremarkable. No cardiomegaly. MEDIASTINUM: Unremarkable. Normal mediastinal contour. BONES/JOINTS: Unremarkable. No acute fracture. OTHER FINDINGS: . . . IMPRESSION: No acute cardiopulmonary process. HS:Y Labs Test 07/17/24 18:58 Range/Units White Blood Count 7.5 4.4-10.8 10^3/uL Red Blood Count 2.62 L 4.0-5.20 10^6/uL Hemoglobin 9.1 L 12.2-16.2 g/dL Hematocrit 26.8 L 36.0-46.0 % Mean Corpuscular Volume 102.4 H 80.0-100.0 fL Mean Corpuscular Hemoglobin 34.9 H 28.0-32.0 pg Mean Corpuscular Hemoglobin Concent 34.1 32.0-36.0 g/dL Red Cell Distribution Width 18.4 H 11.8-14.3 % Platelet Count 93 L 140-450 10^3/uL Mean Platelet Volume 8.1 6.9-10.8 fL Neutrophils (%) (Auto) 64.1 37.0-80.0 % Lymphocytes (%) (Auto) 20.3 10.0-50.0 % Monocytes (%) (Auto) 14.2 H 0.0-12.0 % Eosinophils (%) (Auto) 0.2 0.0-7.0 % Basophils (%) (Auto) 1.2 0.0-2.0 % Neutrophils # (Auto) 4.8 1.6-8.6 10 ^3/uL Lymphocytes # (Auto) 1.5 0.4-5.4 10 ^3/uL Monocytes # (Auto) 1.1 0-1.3 10 ^3/uL Eosinophils # (Auto) 0 0-0.8 10 ^3/uL Basophils # (Auto) 0.1 0-0.2 10 ^3/uL Nucleated Red Blood Cells 0.0 % Prothrombin Time 14.7 H 9.3-11.8 sec Prothrombin Time INR 1.44 H 0.9-1.15 Activated Partial Thromboplast Time 32.7 24.5-34.5 SEC Sodium Level 136 136-145 mmol/L Potassium Level 4.4 3.5-5.1 mmol/L Chloride Level 103 98-107 mmol/L Carbon Dioxide Level 24 20-31 mmol/L Anion Gap 9 5-15 Blood Urea Nitrogen 15 9-23 mg/dL Creatinine 0.73 0.550-1.02 mg/dL Glomerular Filtration Rate Calc 110 >90 mL/min BUN/Creatinine Ratio 20.5 H 10.0-20.0 Serum Glucose 121 H 74-106 mg/dL Lactic Acid Level 3.7 *H 0.4-2.0 mmol/L Calcium Level 7.6 L 8.7-10.4 mg/dL Magnesium Level 2.1 1.6-2.6 mg/dL Total Bilirubin 2.7 H 0.2-1.0 mg/dL Aspartate Amino Transferase (AST) 193 H 13-40 U/L Alanine Aminotransferase (ALT) 40 7-40 U/L Alkaline Phosphatase 69 46-116 U/L Troponin I High Sensitivity 16 </=34 ng/L Total Protein 5.6 L 5.7-8.2 g/dL Albumin 3.2 3.2-4.8 g/dL Lipase 62 H 12-53 U/L Plasma/Serum Blood Alcohol 24.9 H <10 mg/dL Assessment/Plan Assessment/Plan Assessment GI bleed Blood loss anemia secondary to the above Transaminitis, liver cirrhosis electrolyte imbalance Plan Admit the patient to telemetry to the hospitalist Continue Protonix/octreotide GI consultation NPO Maintenance IV fluids Transfuse to keep hemoglobin above seven Continue treatment per orders. Plan discussed with: Patient My Orders Orders - AMAIRANI BRIONES Procedure Category Date Status Time Stool Occult Blood LAB 07/17/24 Logged 19:38 Gastric Occult Blood LAB 07/17/24 Logged 19:38 Admit ADMIT 07/17/24 Transmitted 19:38 Sodium Chloride 0.9% PHA 07/17/24 Logged 19:45 Ondansetron Hcl PHA 07/17/24 Logged (Zofran) 19:45 Npo (Nothing By DIET 07/18/24 Transmitted Mouth) Diet Breakfast Condition: Fair [facility] 07/17/24 In Process 19:38 Bedrest With Bathroom [facility] 07/17/24 In Process Privileg 19:38 Nitroglycerin [facility] 07/17/24 Logged Sublingual (Ntrostat 19:45 Morphine Sulfate PHA 07/17/24 Logged Injection 19:45 Stat Ekg For Chest [facility] 07/17/24 In Process Pain 19:38 Notify Md Of Changes [facility] 07/17/24 In Process From Base 19:38 Pipeline Construction Inspector For [facility] 07/17/24 In Process 24 Hours 19:38 Emergency Dysrhythmia [facility] 07/17/24 In Process Protocol 19:38 Rhythm Strips Once [facility] 07/17/24 In Process Every Shift 19:38 Oxygen By Nasal RT 07/17/24 Transmitted Cannula 19:38 Pantoprazole PHA 07/17/24 Logged 40mg/50ml Ns Ae 21:45 Hemoglobin & LAB 07/17/24 Logged Hematocrit 21:49 Ondansetron Hcl [facility] 07/17/24 Logged (Zofran) 22:00 Complete Blood Count LAB 07/18/24 Verified 04:00 Comprehensive LAB 07/18/24 Verified Metabolic Panel 04:00 Date of Service: Jul 17, 2024 Billing Provider: AMAIRANI BRIONES Common Visit Codes: [id number] INP/OBS CARE (HIGH) AMAIRANI BRIONES Jul 17, 2024 22:06
[2024-07-17] MEDS: PANTOPRAZOLE 40 MG/10 ML VIAL INJ IV ONE (22:22)
[2024-07-17] MEDS: ONDANSETRON HCL 4 MG/2 ML VIAL IV PRN (22:22)
[2024-07-17] MEDS: SODIUM CHLORIDE 0.9% 1,000 ML IV ONE (22:23)
[2024-07-17 22:47] LABS: Hematocrit 25.9 % (36.0-46.0); Hemoglobin 8.7 g/dL (12.2-16.2)
[2024-07-17] MEDS: OCTREOTIDE ACETATE 100 MCG in SODIUM CHL 0.9% 50 ML IV ONE (22:48)
--- NOTE | 2024-07-17 23:07 | DVHINCON2 ---
Date of service: Jul 17, 2024 Referring Physician Bartolo Gamez Reason for Consultation Upper GI bleed History of Present Illness 33 old female presents for GI bleed. Patient presented to outside facility with complaints one day history vomiting blood. Patient with a history of alcoholic liver cirrhosis reports drinking alcohol since yesterday. Today she had multiple episodes of hematemesis. She states having a blood transfusion a month ago. Denies melena. No cardiac or respiratory complaints. Past Medical History Past Medical History Liver cirrhosis Past Surgical History Past Surgical History Denies Family History: Hypertension G8 FATHER Allergies: Coded Allergies: NO KNOWN ALLERGIES (Unverified , 02/04/24) Home Meds Active Scripts Spironolactone (Aldactone) 25 Mg Tab, 100 MG PO DAILY for 30 Days, #120 TAB 2 Refills Prov:JOSE KO RESIDENT 02/08/24 Furosemide (Furosemide) 40 Mg Tab, 40 MG PO DAILY for 30 Days, #30 TAB 2 Refills Prov:JOSE KO RESIDENT 02/08/24 Reported Medications Thiamine Hcl (VITAMIN B-1) 100 Mg Tb, 100 MG GT, TAB 02/04/24 Folic Acid (Folic Acid) 1 Mg Tab, 1 MG PO, TAB 02/04/24 Current Medications Current Medications Medications (Trade) Dose Ordered Sig/Hien Route PRN Reason Start Time Stop Time Status Last Admin Octreotide Acetate 500 mcg/ Sodium Chloride 100 ml @ 10 mls/hr Q10H IV 07/17/24 18:45 Sodium Chloride 1,000 ml @ 80 mls/hr [id number] IV 07/17/24 19:45 Ondansetron HCl (Zofran) 4 mg Q4HP PRN IV NAUSEA / VOMITING 07/17/24 19:45 07/17/24 22:03 DC Nitroglycerin (Ntrostat Sublingual) 0.4 mg Q5MINP PRN SL FOR CHEST PAIN 07/17/24 19:45 Morphine Sulfate 2 mg Q30M PRN IV FOR CHEST PAIN 07/17/24 19:45 Pantoprazole Sodium 50 ml @ 10 mls/hr Q5H IV 07/17/24 21:45 Ondansetron HCl (Zofran) 4 mg Q4HP PRN IV NAUSEA / VOMITING 07/17/24 22:00 07/17/24 22:22 Vital Signs Vital Signs Date Time Temp Pulse Resp B/P (MAP) Pulse Ox O2 Delivery O2 Flow Rate FiO2 07/17/24 20:14 122 07/17/24 18:49 98.7 18 116/63 (80) 96 Physical Exam Gen: 33-year-old female in mild distress. Skin: Warm, dry, normal color and texture, no rash. HEENT: Normocephalic atraumatic, mucous membranes moist and pink. Neck: Cervical and supraclavicular nodes normal without enlargement, trachea is midline, thyroid gland is normal without masses. Pulmonary: Clear to auscultation and percussion bilaterally. Cardiac: Sinus tachycardia Abdomen: Soft, nontender, nondistended, bowel sounds present all 4 quadrants, no guarding, no rigidity, no organomegaly. Extremities: No cyanosis, clubbing, no edema Neuro: Normal affect and speech, no focal motor deficits. Labs/Diagnostic Data Labs Test 07/17/24 22:24 07/17/24 18:58 Range/Units Hemoglobin 8.7 L 12.2-16.2 g/dL Hematocrit 25.9 L 36.0-46.0 % White Blood Count 7.5 4.4-10.8 10^3/uL Red Blood Count 2.62 L 4.0-5.20 10^6/uL Mean Corpuscular Volume 102.4 H 80.0-100.0 fL Mean Corpuscular Hemoglobin 34.9 H 28.0-32.0 pg Mean Corpuscular Hemoglobin Concent 34.1 32.0-36.0 g/dL Red Cell Distribution Width 18.4 H 11.8-14.3 % Platelet Count 93 L 140-450 10^3/uL Mean Platelet Volume 8.1 6.9-10.8 fL Neutrophils (%) (Auto) 64.1 37.0-80.0 % Lymphocytes (%) (Auto) 20.3 10.0-50.0 % Monocytes (%) (Auto) 14.2 H 0.0-12.0 % Eosinophils (%) (Auto) 0.2 0.0-7.0 % Basophils (%) (Auto) 1.2 0.0-2.0 % Neutrophils # (Auto) 4.8 1.6-8.6 10 ^3/uL Lymphocytes # (Auto) 1.5 0.4-5.4 10 ^3/uL Monocytes # (Auto) 1.1 0-1.3 10 ^3/uL Eosinophils # (Auto) 0 0-0.8 10 ^3/uL Basophils # (Auto) 0.1 0-0.2 10 ^3/uL Nucleated Red Blood Cells 0.0 % Prothrombin Time 14.7 H 9.3-11.8 sec Prothrombin Time INR 1.44 H 0.9-1.15 Activated Partial Thromboplast Time 32.7 24.5-34.5 SEC Sodium Level 136 136-145 mmol/L Potassium Level 4.4 3.5-5.1 mmol/L Chloride Level 103 98-107 mmol/L Carbon Dioxide Level 24 20-31 mmol/L Anion Gap 9 5-15 Blood Urea Nitrogen 15 9-23 mg/dL Creatinine 0.73 0.550-1.02 mg/dL Glomerular Filtration Rate Calc 110 >90 mL/min BUN/Creatinine Ratio 20.5 H 10.0-20.0 Serum Glucose 121 H 74-106 mg/dL Calcium Level 7.6 L 8.7-10.4 mg/dL Magnesium Level 2.1 1.6-2.6 mg/dL Total Bilirubin 2.7 H 0.2-1.0 mg/dL Aspartate Amino Transferase (AST) 193 H 13-40 U/L Alanine Aminotransferase (ALT) 40 7-40 U/L Alkaline Phosphatase 69 46-116 U/L Troponin I High Sensitivity 16 </=34 ng/L Total Protein 5.6 L 5.7-8.2 g/dL Albumin 3.2 3.2-4.8 g/dL Lipase 62 H 12-53 U/L Plasma/Serum Blood Alcohol 24.9 H <10 mg/dL CXR Negative Problems(with codes): (1) GI bleed (2) Liver cirrhosis (3) Anemia (4) Alcohol abuse (5) Hematemesis (6) Thrombocytopenia Plan/Recommendation Plan NPO except for ice chips IV fluid hydration IV Protonix 40 mg q.12 hours Monitor serial labs Transfused 1 unit PRBC if hemoglobin is less than seven Patient will be tentatively scheduled for a possible endoscopy in a.m. Further recommendations after the above Plan discussed with: Patient, Other (ER physician) THERESA CHAU MD Jul 17, 2024 23:07
--- NOTE | 2024-07-17 23:15 | DVH ---
INDICATION: hyperbili TECHNIQUE: Multiple real-time sonographic images of the abdomen were obtained. COMPARISON: US ABDOMEN LIMITED on DOS: 02/07/24, US LIVER on DOS: 02/05/24 FINDINGS: Hepatic parenchyma suggests steatosis The liver measures 18.6 cm. No intrahepatic biliary ductal dilatation is noted. The gallbladder wall measures 0.29 cm and is unremarkable. Mobile stones and sludge. The common du ct measures 0.5 cm and is unremarkable. No pericholecystic fluid is noted. Negative ultrasound Juan y's sign is elicited. The right kidney measures 9.4 cm. No hydronephrosis. The pancreas is normal by ultrasound IMPRESSION: 1. 18.6 cm liver with changes in the parenchyma suggesting steatosis. 2. Cholelithiasis and sludge. Negative ultrasound Larkin's sign is elicited.
[2024-07-17] MEDS: OCTREOTIDE ACETATE 500 MCG in SODIUM CHL 0.9% 99 ML IV SCH (23:32)
[2024-07-17] MEDS: SODIUM CHLORIDE 0.9% 1,000 ML IV SCH (23:33)
[2024-07-18] MEDS: LORazepam 2MG/ML-1ML VIAL IV ONE (00:12)
[2024-07-18] MEDS: PANTOPRAZOLE 40mg/50ML NS AE 50 ML IV SCH (00:13)
[2024-07-18] MEDS: IOHEXOL 350 MG/ML 100ML IJ ONE (04:04)
--- NOTE | 2024-07-18 04:27 | DVH ---
Exam: CT CT AB PEL WITH IV CON ONLY History: hematemesis Comparison Study: Right upper quadrant ultrasound performed on 07/17/2024 Technique: Multidetector spiral CT of the abdomen was performed from lung bases to pubic symphysis. Axial imaging was performed with intravenous contrast following the uneventful administration of 100 ml Omnipaque 300. Coronal and sagittal multiplanar reformats were obtained from the axial data set b y the technologist. Radiation Dose : 1. Abdomen/Pelvis: CTDIvol 6.2 mGy, DLP 344.4 mGy*cm. Findings: Lung Bases: Bibasilar atelectasis. Visualized portions of the heart and pericardium are unremarkable. Liver: Heterogeneous enhancement of the liver. Nodular contour consistent cirrhosis. Innumerable low attenuating foci throughout the liver. There is a discretely enhancing mass in the anterior right he patic lobe measuring 1.1 cm ( series 2, image 42). Gallbladder and Biliary Tree: Gallstones. No intrahepatic or extrahepatic biliary ductal dilatation . Spleen: Unremarkable Pancreas: The pancreas enhances normally and there are no focal lesions. The main pancreatic duct i s not dilated Adrenal Glands: Unremarkable Kidneys: Kidneys enhance symmetrically. No calculi or hydronephrosis. GI tract: There is a small hiatal hernia. There is diffuse wall thickening of the stomach. There is d iffuse wall thickening of the small and large bowel loops. The appendix is not visualized, however th ere is no evidence of acute inflammatory changes in the right lower quadrant. Peritoneum/mesentery/retroperitoneum. No evidence of free intraperitoneal air. Mild diffuse abdominop elvic ascites. Lymph nodes: No suspicious lymphadenopathy. Abdominal Wall: Unremarkable. Vasculature: Abdominal aorta and main branches are unremarkable. Normal vascular enhancement. The lucia n portal vein is patent. Multiple gastric varices. Urinary Bladder: Grossly unremarkable for degree of distention. Pelvic Organs: Unremarkable Musculoskeletal: No aggressive focal bony lesions, acute fractures or dislocation. IMPRESSION: 1. Cirrhosis and stigmata of portal hypertension. Innumerable low attenuating lesions throughout the liver which may be related to underlying parenchymal disease. There is a least 1 discretely enhancing lesion in the anterior right hepatic lobe. Malignancy is not excluded. MRI of the abdomen, without a nd with intravenous contrast using liver protocol is recommended. 2. Cholelithiasis. 3. Diffuse wall thickening of the stomach, small and large bowel loops which may be related to portal gastroenteropathy / colopathy. Infectious or inflammatory etiology of the GI tract is not excluded.
[2024-07-18 05:23] LABS: Basophils # (auto) 0.1 10 ^3/uL (0-0.2); Hemoglobin 7.4 g/dL (12.2-16.2); Monocytes # (auto) 0.6 10 ^3/uL (0-1.3); Red Blood Cells 2.12 10^6/uL (4.0-5.20); White Blood Cell 5.1 10^3/uL (4.4-10.8)
[2024-07-18 05:26] LABS: Basophils % (auto) 1.2 % (0.0-2.0); Eosinophils # (auto) 0.1 10 ^3/uL (0-0.8); Eosinophils % (auto) 2.8 % (0.0-7.0); Hematocrit 22.2 % (36.0-46.0); Mean Corpuscular Hemoglobin 35.2 pg (28.0-32.0); Mean Corpuscular Hgb Conc. 33.5 g/dL (32.0-36.0); Mean Corpuscular Volume 104.9 fL (80.0-100.0); Monocytes % (auto) 11.4 % (0.0-12.0); Neutrophils # (auto) 3.3 10 ^3/uL (1.6-8.6); Neutrophils % (auto) 65.6 % (37.0-80.0); Platelet Count (auto) 60 10^3/uL (140-450); Red Cell Distribution Width 18.5 % (11.8-14.3)
[2024-07-18 05:47] LABS: Alanine Aminotransferase 31 U/L (7-40); Alkaline Phosphatase 54 U/L (46-116); Anion Gap 7 (5-15); BUN/Creatinine Ratio 25.4 (10.0-20.0); Blood Urea Nitrogen 16 mg/dL (9-23); Carbon Dioxide 25 mmol/L (20-31); Sodium 140 mmol/L (136-145)
[2024-07-18 05:50] LABS: Albumin 2.7 g/dL (3.2-4.8); Aspartate Aminotransferase 152 U/L (13-40); Bilirubin, Total 3.1 mg/dL (0.2-1.0); Calcium 6.9 mg/dL (8.7-10.4); Chloride 108 mmol/L (98-107); Glucose 107 mg/dL (74-106)
--- NOTE | 2024-07-18 06:39 | ECG ---
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
[2024-07-18 10:13] VITALS: PULSE 110; RESP 19; O2SAT 96
--- NOTE | 2024-07-18 12:18 | DVHPN2 ---
Progress Note Date Seen: Jul 18, 2024 Medical Necessity Reason Pt with a Central, PICC or Fol: No Subjective Patient reports: No new complaints Review of Systems: HEENT:Normal, CVS:Normal, RESPIRATORY:Normal, GI:Normal, :Normal, MSK:Normal, NEURO:Normal Objective vital signs Vital Sign Date Time Temp Pulse Resp B/P (MAP) Pulse Ox O2 Delivery O2 Flow Rate FiO2 07/18/24 08:00 103 10 106/67 (80) 95 07/17/24 21:35 Room Air* 0 21 07/17/24 18:49 98.7 Total Intake and Output 07/17/24 07/17/24 07/18/24 15:00 23:00 07:00 Intake Total 1731 ml Balance 1731 ml medications Current Medications Medications Dose Ordered Sig/Hien Route Start Time Stop Time Status Last Admin Dose Admin Octreotide Acetate 500 mcg/ Sodium Chloride 100 ml @ 10 mls/hr Q10H IV 07/17/24 18:45 07/17/24 23:32 10 MLS/HR Sodium Chloride 1,000 ml @ 80 mls/hr [id number] IV 07/17/24 19:45 07/18/24 08:15 80 MLS/HR Nitroglycerin 0.4 mg Q5MINP PRN SL 07/17/24 19:45 Morphine Sulfate 2 mg Q30M PRN IV 07/17/24 19:45 Pantoprazole Sodium 50 ml @ 10 mls/hr Q5H IV 07/17/24 21:45 07/18/24 07:45 10 MLS/HR Ondansetron HCl 4 mg Q4HP PRN IV 07/17/24 22:00 07/18/24 11:55 4 MG Examination: GENERAL:Normal, GENERAL:Abnormal (pale), HEENT:Normal, NECK:Normal, LUNGS:Normal, CVS:Normal, CVS:Abnormal (tachycardia), ABDOMEN:Normal, MSK:Normal, SKIN:Normal, NEURO:Normal, :Normal laboratory and microbiology Laboratory Tests 07/18/24 05:04 Test 07/18/24 05:04 Range/Units Serum Glucose 107 H 74-106 mg/dL Problem List/Assessment/Plan Problem List/Assessment/Plan #1 gi bleed with ?varices: octreotide, ivf,ppi, egd today #2 anemia: check cbc #3 thrombocytopenia #4 alcoholic liver cirrhosis/liver failure #5 alcohol abuse: thiamine, folic acid #6 gallstones Plan discussed with: Patient, Spouse My Orders My Orders Orders - AMAIRANI VILLAFUERTE MD Procedure Category Date Status Time Complete Blood Count LAB 07/18/24 Logged 12:11 0.9% Ns 1000 Ml PHA 07/18/24 Transmitted 12:15 Thiamine Inj PHA 07/18/24 Transmitted 12:15 Thiamine Inj PHA 07/19/24 Transmitted 10:00 Folic Acid Ivpb PHA 07/19/24 Transmitted 10:00 Folic Acid Ivpb PHA 07/18/24 Transmitted 12:15 Urinalysis LAB 07/18/24 Uncollected 12:12 Complete Blood Count LAB 07/19/24 Verified 06:00 Comprehensive LAB 07/19/24 Verified Metabolic Panel 06:00 Ammonia LAB 07/19/24 Verified 06:00 Critical Care Time (mins): 37 (critical care time 37 mins) Date of Service: Jul 18, 2024 Billing Provider: AMAIRANI VILLAFUERTE MD Common Visit Codes: [id number]-[id number] CARE 30-74 MIN AMAIRANI VILLAFUERTE MD Jul 18, 2024 12:18
[2024-07-18 13:00] VITALS: BP 114/68; PULSE 96; RESP 16; TEMP 98.6; O2SAT 95
[2024-07-18] MEDS ORDERED: LIDOCAINE 2% (LOCAL ANESTH.) PF 5ml SDV ONE (13:28)
[2024-07-18] MEDS ORDERED: fentaNYL CITRATE 100 MCG/2 ML VL ONE (13:28)
[2024-07-18] MEDS ORDERED: PROPOFOL 10 MG/ML 20 ML IV ONE (13:28)
[2024-07-18] MEDS ORDERED: MIDAZOLAM HCL 2MG/2ML 2ml VIAL (1mg/ml) ONE (13:28)
[2024-07-18] MEDS ORDERED: ONDANSETRON HCL 4 MG/2 ML VIAL ONE (13:28)
[2024-07-18] MEDS ORDERED: GLYCOPYRROLATE 0.2 MG/ML 1ML VIAL ONE (13:28)
[2024-07-18 13:45] VITALS: PULSE 114; RESP 12; O2SAT 100
--- NOTE | 2024-07-18 13:57 | DVHOP2 ---
Operative Report DATE OF OPERATION: 07/18/24 PROCEDURE: Upper Endoscopy with biopsy PREOPERATIVE INDICATION: The patient is a 33 -year-old female undergoing endoscopy for upper GI bleed POSTOPERATIVE DIAGNOSES: 1. 1-2 cm sliding-type hiatal hernia with grade a to B linear erosive esophagi tis 2. Patient had trace distal esophageal varices without any stigmata of active bleeding 3. Moderate portal hypertension gastropathy with hyperemia erythema and increase oozing from biopsy sites 4. Otherwise normal examination up to the 2nd part of the duodenal with no active bleeding and no fresh or old blood in the upper GI tract PROCEDURE PERFORMED BY: Theresa Honeycutt GI NURSE: Omega SCOPE: Olympus videoendoscope. ASA CLASS: 2 PREOPERATIVE MEDICATIONS: MAC sedation ; Dr. Walker PROCEDURE IN DETAIL: After obtaining an informed consent, the patient was placed on left lateral decubitus position. The patient was then sedated with the above medications. A bite block was placed between her teeth. The endoscope was then passed through the oropharynx, into the esophagus, and through the stomach and pylorus up to the second and third part of the duodenum. The endoscope was then withdrawn. The 2nd and 3rd part of the duodenum and the duodenal bulb were normal. Duodenal biopsies were obtained The pre-pyloric area antrum and body of the stomach showed moderate gastropathy. There was no fresh or old blood in the upper GI tract Gastric biopsies were obtained and there was increase oozing from biopsy sites. On retroflexion there were no gastric varices. The endoscope was then withdrawn into the distal esophagus where she had a 1-2 cm sliding-type hiatal hernia with some distal esophageal ulcerations and acute esophagitis There were trace distal esophageal varices in two columns but there was no stigmata of recent bleeding. There was no fresh or old bleeding and no esophageal biopsies were obtained. The remaining distal and proximal esophagus and oropharynx were unremarkable The patient tolerated the procedure well without difficulty. COMPLICATIONS : None SPECIMENS: Duodenal Gastric DISPOSITION: Transfer back to the floor Stable Plan Resume soft full liquid diet advance to soft mechanical Protonix 40 mg p.o. daily Carafate 1 g p.o. 4 times a day DC aspirin NSAIDs smoking alcohol Outpatient follow up with me in 4-6 weeks to review results and discuss further management THERESA HONEYCUTT MD Jul 18, 2024 13:57
[2024-07-18] MEDS ORDERED: HYDROmorphone HCL 2 MG/ML VL/or syr IV PRN (14:00)
[2024-07-18] MEDS: ONDANSETRON HCL 4 MG/2 ML VIAL IV ONE (14:00)
[2024-07-18] MEDS: SODIUM CHLORIDE 0.9% 1,000 ML IV SCH (15:00)
[2024-07-18] MEDS: THIAMINE 100mg/ml INJ (200mg/2ml VIAL) IV ONE (15:06)
[2024-07-18 15:41] LABS: Eosinophils # (auto) 0.3 10 ^3/uL (0-0.8); Hemoglobin 7.7 g/dL (12.2-16.2); Mean Corpuscular Hgb Conc. 33.3 g/dL (32.0-36.0); Monocytes # (auto) 0.6 10 ^3/uL (0-1.3); Platelet Count (auto) 66 10^3/uL (140-450)
[2024-07-18 15:43] LABS: Basophils # (auto) 0.1 10 ^3/uL (0-0.2); Basophils % (auto) 1.3 % (0.0-2.0); Eosinophils % (auto) 6.5 % (0.0-7.0); Hematocrit 23.2 % (36.0-46.0); Lymphocytes % (auto) 23.1 % (10.0-50.0); Mean Corpuscular Hemoglobin 35.2 pg (28.0-32.0); Monocytes % (auto) 13.8 % (0.0-12.0); Neutrophils # (auto) 2.4 10 ^3/uL (1.6-8.6); Neutrophils % (auto) 55.3 % (37.0-80.0); Red Blood Cells 2.19 10^6/uL (4.0-5.20); Red Cell Distribution Width 18.6 % (11.8-14.3); White Blood Cell 4.4 10^3/uL (4.4-10.8)
[2024-07-18 17:00] VITALS: BP 126/84; PULSE 108; RESP 18; TEMP 97.5; O2SAT 97
[2024-07-18 17:35] LABS: Urine Bacteria FEW /hpf (None Seen); Urine Blood Negative /uL (Negative); Urine Clarity Clear (Clear); Urine Color Light-Yellow (Yellow); Urine Protein, UAD Negative (Negative); Urine Specific Gravity 1.013 (1.001-1.035); Urine Squamous Epithelial Cell FEW /hpf (<5); Urine Urobilinogen Normal (Negative); Urine WBC 1 /HPF (0-5)
[2024-07-18] MEDS: FOLIC ACID 1 MG in D5W 5% 50 ML INJ ONE (17:43)
[2024-07-18 18:31] LABS: Amphetamine Screen, Urine Neg (NEGATIVE); Barbiturate Scree,Urine Neg (NEGATIVE); Benzodiazephine Screen, Urine Neg (NEGATIVE); Cannabinoid Screen, Urine Neg (NEGATIVE); Cocaine Screen, Urine Neg (NEGATIVE); Opiate Scree,Urine Neg (NEGATIVE); Phencyclidine Screen, Urine Neg (NEGATIVE)
[2024-07-18 20:00] VITALS: PULSE 107; PULSE 89; RESP 19; O2SAT 97
[2024-07-18 21:00] VITALS: BP 98/63; PULSE 107; RESP 19; TEMP 98; O2SAT 97
[2024-07-19] VITALS (8 sets, daily range): BP systolic 94–121; BP diastolic 56–71; PULSE 85–102; RESP 17–20; TEMP 97.6–98.7; O2SAT 94–99
[2024-07-19] MEDS ORDERED: OCTREOTIDE ACETATE 100 MCG/ML VL ONE (02:16)
[2024-07-19 05:44] LABS: Eosinophils # (auto) 0.3 10 ^3/uL (0-0.8); Neutrophils # (auto) 1.9 10 ^3/uL (1.6-8.6)
[2024-07-19 05:47] LABS: Basophils # (auto) 0.1 10 ^3/uL (0-0.2); Basophils % (auto) 1.2 % (0.0-2.0); Eosinophils % (auto) 7.1 % (0.0-7.0); Hemoglobin 7.5 g/dL (12.2-16.2); Lymphocytes # (auto) 1.4 10 ^3/uL (0.4-5.4); Lymphocytes % (auto) 33.6 % (10.0-50.0); Mean Corpuscular Hemoglobin 36.1 pg (28.0-32.0); Mean Corpuscular Hgb Conc. 34.2 g/dL (32.0-36.0); Mean Corpuscular Volume 105.3 fL (80.0-100.0); Monocytes # (auto) 0.5 10 ^3/uL (0-1.3); Monocytes % (auto) 12.1 % (0.0-12.0); Nucleated Red Blood Cells % 0.1 %; Platelet Count (auto) 66 10^3/uL (140-450); Red Blood Cells 2.09 10^6/uL (4.0-5.20); Red Cell Distribution Width 17.5 % (11.8-14.3); White Blood Cell 4.2 10^3/uL (4.4-10.8)
[2024-07-19 05:59] LABS: Alanine Aminotransferase 30 U/L (7-40); Alkaline Phosphatase 53 U/L (46-116); Anion Gap 6 (5-15); BUN/Creatinine Ratio 14.5 (10.0-20.0); Carbon Dioxide 26 mmol/L (20-31); Chloride 105 mmol/L (98-107); Glucose 86 mg/dL (74-106); Sodium 137 mmol/L (136-145)
[2024-07-19 06:02] LABS: Albumin 2.7 g/dL (3.2-4.8); Aspartate Aminotransferase 131 U/L (13-40); Bilirubin, Total 2.6 mg/dL (0.2-1.0); Blood Urea Nitrogen 8 mg/dL (9-23); Calcium 7.4 mg/dL (8.7-10.4); Potassium 3.3 mmol/L (3.5-5.1); Total Protein 4.9 g/dL (5.7-8.2)
[2024-07-19] MEDS: THIAMINE 100mg/ml INJ (200mg/2ml VIAL) IV SCH (09:45)
[2024-07-19] MEDS: FOLIC ACID 1 MG in D5W 5% 50 ML INJ SCH (09:46)
--- NOTE | 2024-07-19 10:39 | DVHPN2 ---
Progress Note Date Seen: Jul 19, 2024 Medical Necessity Reason Pt with a Central, PICC or Fol: No Subjective Patient reports: No new complaints Review of Systems: HEENT:Normal, CVS:Normal, RESPIRATORY:Normal, GI:Normal, :Normal, MSK:Normal, NEURO:Normal Objective vital signs Vital Sign Date Time Temp Pulse Resp B/P (MAP) Pulse Ox O2 Delivery O2 Flow Rate FiO2 07/19/24 08:50 98.3 93 20 121/69 (86) 97 98.3 07/19/24 08:00 Room Air* 0 21 Total Intake and Output 07/18/24 07/18/24 07/19/24 15:00 23:00 07:00 Intake Total 100 ml 150 ml 440 ml Balance 100 ml 150 ml 440 ml medications Current Medications Medications Dose Ordered Sig/Hien Route Start Time Stop Time Status Last Admin Dose Admin Octreotide Acetate 500 mcg/ Sodium Chloride 100 ml @ 10 mls/hr Q10H IV 07/17/24 18:45 07/19/24 02:35 10 MLS/HR Nitroglycerin 0.4 mg Q5MINP PRN SL 07/17/24 19:45 Morphine Sulfate 2 mg Q30M PRN IV 07/17/24 19:45 Pantoprazole Sodium 50 ml @ 10 mls/hr Q5H IV 07/17/24 21:45 07/19/24 08:01 10 MLS/HR Ondansetron HCl 4 mg Q4HP PRN IV 07/17/24 22:00 07/18/24 11:55 4 MG Sodium Chloride 1,000 ml @ 100 mls/hr Q10H IV 07/18/24 12:15 07/19/24 08:02 100 MLS/HR Thiamine HCl 100 mg DAILY IV 07/19/24 10:00 07/19/24 09:45 100 MG Folic Acid 1 mg/ Dextrose 50.2 ml @ 200.8 mls/ hr DAILY INJ 07/19/24 10:00 07/19/24 09:46 200.8 MLS/HR Examination: GENERAL:Normal, HEENT:Normal, NECK:Normal, LUNGS:Normal, CVS:Normal, ABDOMEN:Normal, MSK:Normal, SKIN:Normal, NEURO:Normal, :Normal laboratory and microbiology Laboratory Tests 07/19/24 05:23 Test 07/19/24 05:23 Range/Units Serum Glucose 86 74-106 mg/dL Problem List/Assessment/Plan Problem List/Assessment/Plan #1 gi bleed with varices: ppi, carafate #2 anemia: check cbc #3 thrombocytopenia #4 alcoholic liver cirrhosis/liver failure #5 alcohol abuse: thiamine, folic acid #6 gallstones advance care planning- full code- time spent 18 mins Plan discussed with: Patient My Orders My Orders Orders - AMAIRANI VILLAFUERTE MD Procedure Category Date Status Time Sodium Chloride 0.9% PHA 07/18/24 In Process 12:15 Thiamine Inj PHA 07/19/24 In Process 10:00 Folic Acid PHA 07/19/24 In Process 10:00 Clear Liq Diet DIET 07/18/24 Transmitted Dinner Date of Service: Jul 19, 2024 Billing Provider: AMAIRANI VILLAFUERTE MD Common Visit Codes: 09633-[id number] INP/OBS CARE(HIGH) Secondary Visit Codes: 07085-[id number] CARE PLAN 30 MINUTES AMAIRANI VILLAFUERTE MD Jul 19, 2024 10:39
[2024-07-19] MEDS: SODIUM CHLORIDE 0.9% 1,000 ML IV SCH (11:10)
[2024-07-19] MEDS: LACTULOSE 20Gm/30ML SOLN PO ONE (11:14)
[2024-07-19] MEDS: SUCRALFATE 1 GM TAB PO SCH (11:15)
[2024-07-19] MEDS: IRON SUCROSE COMPLEX 110 ML IV SCH (13:32)
--- NOTE | 2024-07-19 15:00 | DVHINCON2 ---
Date of Service if different f: Jul 19, 2024 Consultation ([facility]) Consulting Physician: THERESA CHAU MD Labs Laboratory Tests Test 07/17/24 18:58 07/17/24 22:24 07/18/24 05:04 07/18/24 05:32 Prothrombin Time 14.7 sec (9.3-11.8) Prothromb Time International Ratio 1.44 (0.9-1.15) Activated Partial Thromboplast Time 32.7 SEC (24.5-34.5) Magnesium Level 2.1 mg/dL (1.6-2.6) Troponin I High Sensitivity 16 ng/L (</=34) Lipase 62 U/L (12-53) Plasma/Serum Blood Alcohol 24.9 mg/dL (<10) Lactic Acid Level 1.7 mmol/L (0.4-2.0) Beta HCG, Quantitative 0.5 mIU/mL (1.5-4.2) Stool Occult Blood Positive (Negative) Stool Occult Blood Sample #3 (Negative) Test 07/18/24 16:00 07/19/24 05:23 Urine Color Light-yellow (Yellow) Urine Clarity Clear (Clear) Urine pH 7.0 (5.0-9.0) Urine Specific [place] 1.013 (1.001-1.035) Urine Protein Negative (Negative) Urine Ketones Negative (Negative) Urine Blood Negative /uL (Negative) Urine Nitrite Negative (Negative) Urine Bilirubin Negative (Negative) Urine Urobilinogen Normal mg/dL (Negative) Urine Leukocyte Esterase Negative /uL (Negative) Urine RBC <1 /hpf (0 - 4) Urine Microscopic WBC 1 /HPF (0-5) Urine Squamous Epithelial Cells Few /hpf (<5) Urine Bacteria Few /hpf (None Seen) Urine Glucose Normal mg/dL (Normal) Urine Opiates Screen Neg (NEGATIVE) Urine Fentanyl Screen Neg (NEGATIVE) Urine Barbiturates Screen Neg (NEGATIVE) Urine Phencyclidine Screen Neg (NEGATIVE) Urine Amphetamines Screen Neg (NEGATIVE) Urine Benzodiazepines Screen Neg (NEGATIVE) Urine Cocaine Screen Neg (NEGATIVE) Urine Cannabinoids Screen Neg (NEGATIVE) White Blood Count 4.2 10^3/uL (4.4-10.8) Red Blood Count 2.09 10^6/uL (4.0-5.20) Hemoglobin 7.5 g/dL (12.2-16.2) Hematocrit 22.0 % (36.0-46.0) Mean Corpuscular Volume 105.3 fL (80.0-100.0) Mean Corpuscular Hemoglobin 36.1 pg (28.0-32.0) Mean Corpuscular Hemoglobin Concent 34.2 g/dL (32.0-36.0) Red Cell Distribution Width 17.5 % (11.8-14.3) Platelet Count 66 10^3/uL (140-450) Mean Platelet Volume 8.2 fL (6.9-10.8) Neutrophils (%) (Auto) 46.0 % (37.0-80.0) Lymphocytes (%) (Auto) 33.6 % (10.0-50.0) Monocytes (%) (Auto) 12.1 % (0.0-12.0) Eosinophils (%) (Auto) 7.1 % (0.0-7.0) Basophils (%) (Auto) 1.2 % (0.0-2.0) Neutrophils # (Auto) 1.9 10 ^3/uL (1.6-8.6) Lymphocytes # (Auto) 1.4 10 ^3/uL (0.4-5.4) Monocytes # (Auto) 0.5 10 ^3/uL (0-1.3) Eosinophils # (Auto) 0.3 10 ^3/uL (0-0.8) Basophils # (Auto) 0.1 10 ^3/uL (0-0.2) Nucleated Red Blood Cells 0.1 % Sodium Level 137 mmol/L (136-145) Potassium Level 3.3 mmol/L (3.5-5.1) Chloride Level 105 mmol/L (98-107) Carbon Dioxide Level 26 mmol/L (20-31) Anion Gap 6 (5-15) Blood Urea Nitrogen 8 mg/dL (9-23) Creatinine 0.55 mg/dL (0.550-1.02) Glomerular Filtration Rate Calc 123 mL/min (>90) BUN/Creatinine Ratio 14.5 (10.0-20.0) Serum Glucose 86 mg/dL (74-106) Calcium Level 7.4 mg/dL (8.7-10.4) Total Bilirubin 2.6 mg/dL (0.2-1.0) Aspartate Amino Transf (AST/SGOT) 131 U/L (13-40) Alanine Aminotransferase (ALT/SGPT) 30 U/L (7-40) Alkaline Phosphatase 53 U/L (46-116) Ammonia 36 umol/L (11-32) Total Protein 4.9 g/dL (5.7-8.2) Albumin 2.7 g/dL (3.2-4.8) Appetite: Fair Appearance: Stated age, Groomed Psychomotor activity: WNL Behavioral: Cooperative Eye contact: Limited Speech: Soft Affect: Mood Congruent Mood: Depressed Thought content: WNL Suicidal ideations: Absent Homicidal ideations: Absent Orientation: Person, Place, Time, Situation Memory intact: Recent Intellect: Average Abstractability: WNL Concentration: Adequate Attention: Adequate Judgement: WNL Insight: Fair Vitals Vital Signs Date Time Temp Pulse Resp B/P (MAP) Pulse Ox O2 Delivery O2 Flow Rate FiO2 07/19/24 08:50 98.3 93 20 121/69 (86) 97 98.3 07/19/24 08:00 Room Air* 0 21 Current medications Current Medications Medications Dose Ordered Sig/Hien Route Start Time Stop Time Status Last Admin Dose Admin Nitroglycerin 0.4 mg Q5MINP PRN SL 07/17/24 19:45 Morphine Sulfate 2 mg Q30M PRN IV 07/17/24 19:45 Ondansetron HCl 4 mg Q4HP PRN IV 07/17/24 22:00 07/18/24 11:55 4 MG Thiamine HCl 100 mg DAILY IV 07/19/24 10:00 07/19/24 09:45 100 MG Folic Acid 1 mg/ Dextrose 50.2 ml @ 200.8 mls/ hr DAILY INJ 07/19/24 10:00 07/19/24 09:46 200.8 MLS/HR Sodium Chloride 1,000 ml @ 60 mls/hr [id number] IV 07/19/24 10:45 07/19/24 11:10 60 MLS/HR Pantoprazole Sodium 40 mg DAILY@0600 PO 07/20/24 06:00 Sucralfate 1 gm QIDACHS PO 07/19/24 11:30 07/19/24 11:15 1 GM Iron Sucrose 110 ml @ 110 mls/hr DAILY@1200 IV 07/19/24 12:00 07/23/24 12:59 Lactulose 30 ml DAILY PO 07/20/24 10:00 Medication adjusted: Yes Diagnosis: unspecified mood disorder, unspecified psychosis, Alcohol use disorder Plan : This is a 33-year-old female with hx of depression and alcohol use disorder, now having visual hallucinations with alcohol withdrawal. She denies suicidal/homicidal thoughts with plan or intent. She wants to discharge after medical clearance and go to her program of choice. She does agrees to use psychotropic medications. Recommend lexapro 5mg po daily. Risperdal 1mg po qhs. Patient agrees with plan Recommend discharge after medical clearance. Please provide other outpatient mental health referrals and rehab programs. discussed returning to ED for worsening mood, si/hi or psychosis History of Present Illness Reason for Consult : per report from nurse, reported hx of cutting and using their dog's xanax. HPI : This is a 33-year-old female with hx of alcohol abuse presented for vomiting and GI bleed. Patient was evaluated via telepsychiatry. She reports having a lot of stressors in her marriage. Her is an army captain and they move a lot. They moved to [place] in November 2023 she reports loving it here. They argue about various things. He only talks about his work. She feels like she's tired of doing all the house work and he not help. She has suggested marriage counseling and they only went once. She has being feeling depressed, lack of motivation, but does say she wants to go back to school to work on her master's. She denies feeling hopeless. She reports mood is usually worst int he winter months. She denies suicidal/homicidal thoughts. She denies thoughts of not wanting to live. She denies auditory hallucinations. She does reports while having alcohol withdrawals this time, having visual hallucinations for a few days. For example, she reports seeing a pile of clothes in the corner that are not there or sometimes sees someone standing in the corner that are not there. She has never had this before. She denies any paranoid thoughts. She does want to stop drinking and reports her and best friend found a program in [place] that accepts her insurance. She denies reports of self-harming, denies hx of cutting. She does say she gets anxious, no known triggers and she sometimes uses the Xanax prescribed to her do g. 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 Past Psychiatric History : She denies past psych admissions or holds. She denies past suicide attempts. She denies current outpatient mental health psychiatrist or therapist. She has been prescribed antidepressants in the past. he cannot recall names or length of time. Past Medical History : Anemia, Cirrhosis Social History : She lives with who is the [employer], based locally. She stays home with their dog and cat. She is not employed. They have no children. She reports alcohol use began in year 2019 during the pandemic, she was feeling more anxious. She reports drinking more heavily the last one month daily. Her choice of alcohol is Gin, she drinks about half of 750mL bottle daily. She denies other substances including marijuana. She denies nicotine use. She reports family history-mom hx of depression. Brother and sister-ADHD DEON HOGAN DNP Jul 19, 2024 15:00
[2024-07-19] MEDS: POTASSIUM CHLORIDE 40 MEQ, LIDOCAINE 1% (LOCAL ANESTH.) 4 ML in SODIUM CHL 0.9% 250 ML IV ONE (15:20)
--- NOTE | 2024-07-19 21:36 | DVHPN2 ---
Progress Note - Dictate Date Seen: Jul 19, 2024 Medical Necessity Reason Pt with a Central, PICC or Fol: No Subjective Patient was seen at bedside, resting comfortably She denies any nausea vomiting or hematemesis ; hemoglobin stable at 7.5 Patient is somewhat tremulous; liver enzymes are trending down Ezequiel discrimination function is 19 points suggestive of good prognosis Meld score is 14 points which also has low three-month mortality rate of 6% vital signs Vital Sign Date Time Temp Pulse Resp B/P (MAP) Pulse Ox O2 Delivery O2 Flow Rate FiO2 07/19/24 20:59 97.9 95 17 101/56 (71) 99 97.9 07/19/24 08:00 Room Air* 0 21 Total Intake and Output 07/18/24 07/18/24 07/19/24 14:59 22:59 06:59 Intake Total 100 ml 150 ml 440 ml Balance 100 ml 150 ml 440 ml medications Current Medications Medications Dose Ordered Sig/Hien Route Start Time Stop Time Status Last Admin Dose Admin Nitroglycerin 0.4 mg Q5MINP PRN SL 07/17/24 19:45 Morphine Sulfate 2 mg Q30M PRN IV 07/17/24 19:45 Ondansetron HCl 4 mg Q4HP PRN IV 07/17/24 22:00 07/18/24 11:55 4 MG Thiamine HCl 100 mg DAILY IV 07/19/24 10:00 07/19/24 09:45 100 MG Folic Acid 1 mg/ Dextrose 50.2 ml @ 200.8 mls/ hr DAILY INJ 07/19/24 10:00 07/19/24 09:46 200.8 MLS/HR Sodium Chloride 1,000 ml @ 60 mls/hr [id number] IV 07/19/24 10:45 07/19/24 11:10 60 MLS/HR Pantoprazole Sodium 40 mg DAILY@0600 PO 07/20/24 06:00 Sucralfate 1 gm QIDACHS PO 07/19/24 11:30 07/19/24 17:12 1 GM Iron Sucrose 110 ml @ 110 mls/hr DAILY@1200 IV 07/19/24 12:00 07/23/24 12:59 07/19/24 13:32 110 MLS/HR Lactulose 30 ml DAILY PO 07/20/24 10:00 objective Gen: 33-year-old female in mild distress. Skin: Warm, dry, normal color and texture, no rash. HEENT: Normocephalic atraumatic, mucous membranes moist and pink. Neck: Cervical and supraclavicular nodes normal without enlargement, trachea is midline, thyroid gland is normal without masses. Pulmonary: Clear to auscultation and percussion bilaterally. Cardiac: Sinus tachycardia Abdomen: Soft, nontender, nondistended, bowel sounds present all 4 quadrants, no guarding, no rigidity, no organomegaly. Extremities: No cyanosis, clubbing, no edema Neuro: Normal affect and speech, no focal motor deficits. laboratory and microbiology Laboratory Tests 07/19/24 05:23 Test 07/19/24 05:23 Range/Units Serum Glucose 86 74-106 mg/dL CT SCAN ABD PELVIS IMPRESSION: 1. Cirrhosis and stigmata of portal hypertension. Innumerable low attenuating lesions throughout the liver which may be related to underlying parenchymal disease. There is a least 1 discretely enhancing lesion in the anterior right hepatic lobe. Malignancy is not excluded. MRI of the abdomen, without and with intravenous contrast using liver protocol is recommended. 2. Cholelithiasis. 3. Diffuse wall thickening of the stomach, small and large bowel loops which may be related to portal gastroenteropathy / colopathy. Infectious or inflammatory etiology of the GI tract is not excluded. Problems(with codes): (1) Esophageal varices (2) Hiatal hernia with GERD and esophagitis (3) Portal hypertensive gastropathy (4) GI bleed (5) Liver cirrhosis (6) Anemia (7) Alcohol abuse (8) Hematemesis (9) Elevated lipase Prognosis Plan Advance diet as tolerated Continue PPI and Carafate Patient does not appear to need steroids at this time Complete abstinence was discussed with the patient and she was advised not to keep any alcohol at home Patient stated she drawn started drinking more during the COVID times and her also does drink at home but not as much as her Plan discussed with: Patient THERESA CHAU MD Jul 19, 2024 21:36
[2024-07-20 04:32] VITALS: BP 101/67; PULSE 95; RESP 19; TEMP 98.1; O2SAT 99
[2024-07-20] MEDS: PANTOPRAZOLE 40 MG TAB PO SCH (05:34)
[2024-07-20 06:38] LABS: Basophils # (auto) 0 10 ^3/uL (0-0.2); Basophils % (auto) 0.9 % (0.0-2.0); Eosinophils # (auto) 0.2 10 ^3/uL (0-0.8); Eosinophils % (auto) 5.5 % (0.0-7.0); Hematocrit 23.8 % (36.0-46.0); Lymphocytes # (auto) 1.4 10 ^3/uL (0.4-5.4); Lymphocytes % (auto) 32.4 % (10.0-50.0); Mean Corpuscular Hemoglobin 35.3 pg (28.0-32.0); Mean Corpuscular Hgb Conc. 33.5 g/dL (32.0-36.0); Mean Corpuscular Volume 105.4 fL (80.0-100.0); Monocytes # (auto) 0.5 10 ^3/uL (0-1.3); Monocytes % (auto) 12.8 % (0.0-12.0); Neutrophils # (auto) 2.1 10 ^3/uL (1.6-8.6); Neutrophils % (auto) 48.4 % (37.0-80.0); Nucleated Red Blood Cells % 0.4 %; Platelet Count (auto) 82 10^3/uL (140-450); Red Blood Cells 2.26 10^6/uL (4.0-5.20); Red Cell Distribution Width 17.7 % (11.8-14.3); White Blood Cell 4.3 10^3/uL (4.4-10.8)
[2024-07-20 07:01] LABS: Alanine Aminotransferase 25 U/L (7-40); Alkaline Phosphatase 60 U/L (46-116); Anion Gap 5 (5-15); Carbon Dioxide 26 mmol/L (20-31); Chloride 104 mmol/L (98-107); Glucose 83 mg/dL (74-106); Potassium 3.6 mmol/L (3.5-5.1)
[2024-07-20 07:03] LABS: Aspartate Aminotransferase 108 U/L (13-40); BUN/Creatinine Ratio 8.2 (10.0-20.0); Bilirubin, Total 2.3 mg/dL (0.2-1.0); Blood Urea Nitrogen < 5 mg/dL (9-23); Calcium 7.9 mg/dL (8.7-10.4); Sodium 135 mmol/L (136-145); Total Protein 5.3 g/dL (5.7-8.2)
[2024-07-20 08:30] VITALS: PULSE 90; PULSE 93; RESP 16; O2SAT 98
[2024-07-20 09:00] VITALS: BP 107/67; PULSE 93; RESP 16; TEMP 98; O2SAT 98
[2024-07-20] MEDS: LACTULOSE 20Gm/30ML SOLN PO SCH (10:06)
[2024-07-20 13:00] VITALS: BP 102/64; PULSE 93; RESP 14; TEMP 98.5; O2SAT 97
--- NOTE | 2024-07-20 14:53 | DVHDS2 ---
Discharge Summary Date of Admission Jul 17, 2024 at 19:38 Date of Discharge: Jul 20, 2024 Labs/Diagnostic Data: Laboratory Results Test 07/20/24 05:51 07/19/24 05:23 07/18/24 16:00 07/18/24 05:32 White Blood Count 4.3 10^3/uL (4.4-10.8) Red Blood Count 2.26 10^6/uL (4.0-5.20) Hemoglobin 8.0 g/dL (12.2-16.2) Hematocrit 23.8 % (36.0-46.0) Mean Corpuscular Volume 105.4 fL (80.0-100.0) Mean Corpuscular Hemoglobin 35.3 pg (28.0-32.0) Mean Corpuscular Hemoglobin Concent 33.5 g/dL (32.0-36.0) Red Cell Distribution Width 17.7 % (11.8-14.3) Platelet Count 82 10^3/uL (140-450) Mean Platelet Volume 8.1 fL (6.9-10.8) Neutrophils (%) (Auto) 48.4 % (37.0-80.0) Lymphocytes (%) (Auto) 32.4 % (10.0-50.0) Monocytes (%) (Auto) 12.8 % (0.0-12.0) Eosinophils (%) (Auto) 5.5 % (0.0-7.0) Basophils (%) (Auto) 0.9 % (0.0-2.0) Neutrophils # (Auto) 2.1 10 ^3/uL (1.6-8.6) Lymphocytes # (Auto) 1.4 10 ^3/uL (0.4-5.4) Monocytes # (Auto) 0.5 10 ^3/uL (0-1.3) Eosinophils # (Auto) 0.2 10 ^3/uL (0-0.8) Basophils # (Auto) 0 10 ^3/uL (0-0.2) Nucleated Red Blood Cells 0.4 % Sodium Level 135 mmol/L (136-145) Potassium Level 3.6 mmol/L (3.5-5.1) Chloride Level 104 mmol/L (98-107) Carbon Dioxide Level 26 mmol/L (20-31) Anion Gap 5 (5-15) Blood Urea Nitrogen < 5 mg/dL (9-23) Creatinine 0.61 mg/dL (0.550-1.02) Glomerular Filtration Rate Calc 119 mL/min (>90) BUN/Creatinine Ratio 8.2 (10.0-20.0) Serum Glucose 83 mg/dL (74-106) Calcium Level 7.9 mg/dL (8.7-10.4) Total Bilirubin 2.3 mg/dL (0.2-1.0) Aspartate Amino Transferase (AST) 108 U/L (13-40) Alanine Aminotransferase (ALT) 25 U/L (7-40) Alkaline Phosphatase 60 U/L (46-116) Total Protein 5.3 g/dL (5.7-8.2) Albumin 3.0 g/dL (3.2-4.8) Ammonia 36 umol/L (11-32) Urine Color Light-yellow (Yellow) Urine Clarity Clear (Clear) Urine pH 7.0 (5.0-9.0) Urine Specific [place] 1.013 (1.001-1.035) Urine Protein Negative (Negative) Urine Ketones Negative (Negative) Urine Blood Negative /uL (Negative) Urine Nitrite Negative (Negative) Urine Bilirubin Negative (Negative) Urine Urobilinogen Normal mg/dL (Negative) Urine Leukocyte Esterase Negative /uL (Negative) Urine RBC <1 /hpf (0 - 4) Urine Microscopic WBC 1 /HPF (0-5) Urine Squamous Epithelial Cells Few /hpf (<5) Urine Bacteria Few /hpf (None Seen) Urine Glucose Normal mg/dL (Normal) Urine Opiates Screen Neg (NEGATIVE) Urine Fentanyl Screen Neg (NEGATIVE) Urine Barbiturates Screen Neg (NEGATIVE) Urine Phencyclidine Screen Neg (NEGATIVE) Urine Amphetamines Screen Neg (NEGATIVE) Urine Benzodiazepines Screen Neg (NEGATIVE) Urine Cocaine Screen Neg (NEGATIVE) Urine Cannabinoids Screen Neg (NEGATIVE) Stool Occult Blood Positive (Negative) Stool Occult Blood Sample #3 (Negative) Test 07/18/24 05:04 07/17/24 22:24 07/17/24 18:58 Beta HCG, Quantitative 0.5 mIU/mL (1.5-4.2) Lactic Acid Level 1.7 mmol/L (0.4-2.0) Prothrombin Time 14.7 sec (9.3-11.8) Prothrombin Time INR 1.44 (0.9-1.15) Activated Partial Thromboplast Time 32.7 SEC (24.5-34.5) Magnesium Level 2.1 mg/dL (1.6-2.6) Troponin I High Sensitivity 16 ng/L (</=34) Lipase 62 U/L (12-53) Plasma/Serum Blood Alcohol 24.9 mg/dL (<10) Other Laboratory Tests 07/20/24 05:51 Brief Hx & Hospital Course: see dictated note Condition at Discharge: Fair Final Diagnosis/Problems List gi bleed Discharge Disposition: Home Discharge Instruct/Medications Diet: Regular Activity: No Restrictions, As Tolerated Follow Up/Referral: fu with pcp/psych Medications: resume home meds script in chart Discharge Statement: "Patient was advised to return to the ER or call 911 if any headaches, dizziness, shortness of breath, chest pain, abdominal pain, bleeding, fevers, or worsening of medical condition. Patient was counseled about treatment plan, medications, possible side effects, patientverbalized understanding. All questions were answered to the best of my ability. This discharge took greater then 30 minutes in planning, reviewing documentation, counseling the patient, and discussing with other team members." ASSESSMENT ASSESSMENT Assessment gi bleed Date of Service: Jul 20, 2024 Billing Provider: AMAIRANI VILLAFUERTE MD Common Visit Codes: 12427-PES/OBS DISCH DAY >30min AMAIRANI VILLAFUERTE MD Jul 20, 2024 14:53
--- NOTE | 2024-07-20 15:27 | DVHDS ---
DATE OF DISCHARGE: 07/20/2024 HISTORY OF PRESENT ILLNESS: The patient is a 33-year-old lady who was admitted with history of vomiting blood and has a history of liver cirrhosis. HOSPITAL COURSE: The patient had a CT of abdomen and pelvis that showed evidence of cholelithiasis with cirrhosis of liver with one discrete enhancing lesion in the anterior right hepatic lobe. The patient was seen in GI consult by Dr. Bekah Honeycutt. The patient underwent upper endoscopy that showed evidence of sliding hiatal hernia with trace distal esophageal varices and moderate portal hypertension with portal gastropathy. The patient's hemoglobin has remained stable, at the time of discharge was 8.0. The patient's platelets were 82,000. Tox screen was positive for alcohol. The patient's bilirubin was 2.3, AST 108. The patient will now be discharged home to resume her home medications. The patient was also seen by tele-psychiatry, who recommended rehab as well as to be placed the patient on Lexapro. The patient will be discharged now to be placed on Protonix 40 mg daily, Carafate 1 g p.o. q.i.d. for 30 days, Lexapro 5 mg daily, lactulose 30 mL daily, and iron sulfate 325 mg daily. She will follow up with her primary as well as psychiatry. FINAL DIAGNOSES: Therefore, * Gastrointestinal bleed with varices with portal gastropathy. * Liver cirrhosis secondary to alcohol abuse. * Transaminitis. * Thrombocytopenia. * Anemia. * Gallstones. * Depression. I have also given a copy of the CAT scan to the patient, so she can show it to her primary in case further workup is needed. Time spent in discharge planning and review of plan with the patient and nursing was 39 minutes. MD TOVA Cid/YARELI TID: [id number] RECEIPT: [id number]
== END 2024-07-20 18:20 | disposition home or self-care (01) | DRG 432 ==
LOC: ER 18:28 → EDBD 18:28 → TELE 19:38 → TELE-EAST 07-18 10:02
PROVIDERS: ADMIT Internal Medicine; ATTEND Internal Medicine
PROC: 0DB68ZX Excision of Stomach, Via Natural or Artificial Opening Endoscopic, Diagnostic (ICD-10-PCS; 2024-07-18)
PROC: 0DB98ZX Excision of Duodenum, Via Natural or Artificial Opening Endoscopic, Diagnostic (ICD-10-PCS; principal; 2024-07-18 13:30)
DX: K70.30 Alcoholic cirrhosis of liver without ascites (principal); I85.11 Secondary esophageal varices with bleeding; F10.139 Alcohol abuse with withdrawal, unspecified; K76.6 Portal hypertension; K22.10 Ulcer of esophagus without bleeding; K44.9 Diaphragmatic hernia without obstruction or gangrene; D50.0 Iron deficiency anemia secondary to blood loss (chronic); D69.6 Thrombocytopenia, unspecified; K80.20 Calculus of gallbladder without cholecystitis without obstruction; K72.90 Hepatic failure, unspecified without coma; F32.A Depression, unspecified; K31.89 Other diseases of stomach and duodenum; Y90.9 Presence of alcohol in blood, level not specified; Z82.49 Family history of ischemic heart disease and other diseases of the circulatory system; Z91.52 Personal history of nonsuicidal self-harm; Z81.8 Family history of other mental and behavioral disorders; Z79.899 Other long term (current) drug therapy
CPT/HCPCS: 36415; 71045; 74177; 76705; 80053; 80307; 80320; 81001; 82140; 82270; 83605; 83690; 83735; 84484; 84702; 85014; 85018; 85025; 85610; 85730; 86850; 86900; 86901; 93005; 96361; 96374; 96375; 97116; 97163; 97530; G0378; J1756; J2003; J2250; J2405; J2470; J2704; J7060

== ENCOUNTER 2025-06-21 21:20 | Inpatient (IN) | payer OTHER ==
[~2025-06-21] VITALS: Ht 157.5 cm; Wt 68.4 kg
--- NOTE | 2025-06-21 21:34 | ED.PDOC ---
History of Present Illness HPI Comments 34-year-old female who came to ER via EMS for GI bleed. Patient has a history of alcoholic liver cirrhosis, anemia, esophageal varices had 4 episodes of hematemesis earlier so she went to [facility]. Denies any abdominal pain shows or melena. Multiple diagnostic tests were done, the pat ient was transferred here for further evaluation and management, since they have no GI specialist travel money advisor. Patient admits that she last drank alcohol last night. Denies history of alcohol withdrawal. REVIEW OF SYSTEMS: General: No fever, no chills, or fatigue HEENT: No sore throat, no earache, no congestion, no neck pain. Cardiac: No chest pain. No palpitations. Lungs: No shortness of breath, no cough. GI: No nausea, no vomiting, no diarrhea, no constipation, no abdominal pain, (+) hematemesis : No dysuria, frequency, or urgency. No hematuria. Musculoskeletal: No joint pain , no joint swelling, no extremity edema. Skin: No rash, no itching. Neuro: No headache, no dizziness, no weakness PHYSICAL EXAM: General: Awake, alert and oriented. No acute distress. Skin: Skin in warm, dry and intact . Appears jaundiced HEENT: The head is normocephalic and atraumatic. Conjunctivae are clear without exudates or hemorrhage. Sclera is non-icteric. Neck: Normal range of motion. No JVD. Cardiac: Regular rate Respiratory: No signs of respiratory distress. No Stridor. Extremities: Upper and lower extremities are atraumatic in appearance without deformity. Neurological: The patient is awake, alert and oriented to person, place, and time with normal speech. Speech is clear. There is no facial asymmetry. Psychiatric: Flat affect, depressed mood Chief Complaint: GI bleed Time Seen by MD: 21:33 Reviewed Notes: Nurses Notes, Licensed Insurance Agent Notes Allergies: Coded Allergies: NO KNOWN ALLERGIES (Unverified , 02/04/24) Home Meds Active Scripts Spironolactone (Aldactone) 25 Mg Tab, 100 MG PO DAILY for 30 Days, #120 TAB 2 Refills Prov:JOSE KO RESIDENT 02/08/24 Furosemide (Furosemide) 40 Mg Tab, 40 MG PO DAILY for 30 Days, #30 TAB 2 Refills Prov:JOSE KO RESIDENT 02/08/24 Reported Medications Thiamine Hcl (VITAMIN B-1) 100 Mg Tb, 100 MG GT, TAB 02/04/24 Folic Acid (Folic Acid) 1 Mg Tab, 1 MG PO, TAB 02/04/24 Information Source: Patient Mode of Arrival: EMS Past Medical History PAST MEDICAL HISTORY: Anemia, Liver Past Medical History (Other): Alcoholic liver cirrhosis, esophageal varices QUALITY MANAGEMENT NURSE History: No Pertinent QUALITY MANAGEMENT NURSE History Family History Family History: Reviewed,noncontributory to illness Social History Smoker: Non-Smoker Alcohol: Heavy Drugs: Denies Drug Use Lives In: Home Was a procedure done? Was a procedure done?: No Differential Dx Considerations may include: Anemia, electrolyte imbalance, GI bleed, esophageal varices, alcoholic liver cirrhosis X-Ray, Labs, Meds, VS Vital Signs Date Time Temp Pulse Resp B/P (MAP) Pulse Ox O2 Delivery O2 Flow Rate FiO2 06/21/25 21:22 98.4 102 18 108/71 96 98.4 Lab Test 06/21/25 21:33 Range/Units Prothrombin Time Pending Prothrombin Time INR Pending Sodium Level Pending Potassium Level Pending Chloride Level Pending Carbon Dioxide Level Pending Anion Gap Pending Blood Urea Nitrogen Pending Creatinine Pending Glomerular Filtration Rate Calc Pending BUN/Creatinine Ratio Pending Serum Glucose Pending Calcium Level Pending Total Bilirubin Pending Aspartate Amino Transferase (AST) Pending Alanine Aminotransferase (ALT) Pending Alkaline Phosphatase Pending Total Protein Pending Albumin Pending Time of 1ST Reevaluation: 21:24 Reevaluation 1ST: Unchanged Patient Education/Counseling: Need For Follow Up Family Education/Counseling: No Family Present SEPSIS Sepsis Screen Physician Orders Comprehensive Metabolic Panel (06/21/25 21:22) Basic Metabolic Panel (06/21/25 21:22) Stool Occult Blood (06/21/25 21:22) Prothrombin Time W/ Inr (06/21/25 21:22) Vital Signs Date Time Temp Pulse Resp B/P (MAP) Pulse Ox O2 Delivery O2 Flow Rate FiO2 06/21/25 21:22 98.4 102 18 108/71 96 98.4 Departure 1 Departure Time of Disposition: 21:45 Impression: Primary Impression: GI bleed Disposition: ADMITTED INPATIENT Condition: Stable Critical Care Note Critical Care Time?: No Stability Stability form required: No Heart Score Heart Score: Heart Score Response (Comments) Value History N/A 0 EKG N/A 0 Age N/A 0 Risk Factors N/A 0 Troponin N/A 0 Total 0 I personally scribed for MYLES SINGH MD ([email or web address]) on 06/21/25 at 21:34. Electronically submitted by Shaquille Arce ([facility]). MYLES SINGH MD Jun 21, 2025 21:34
[2025-06-21 21:55] LABS: INR 1.54 (0.9-1.15); Prothrombin Time 15.6 sec (9.3-11.8)
[2025-06-21 22:00] LABS: Carbon Dioxide 21 mmol/L (20-31); Chloride 106 mmol/L (98-107)
[2025-06-21 22:01] LABS: Albumin 3.3 g/dL (3.2-4.8); Anion Gap 14 (5-15); BUN/Creatinine Ratio 17.2 (10.0-20.0); Blood Urea Nitrogen 11 mg/dL (9-23); Potassium 4.7 mmol/L (3.5-5.1); Sodium 141 mmol/L (136-145); Total Protein 6.7 g/dL (5.7-8.2)
[2025-06-21 22:35] LABS: Alanine Aminotransferase 41 U/L (7-40); Alkaline Phosphatase 128 U/L (46-116); Bilirubin, Total 6.1 mg/dL (0.2-1.0); Calcium 8.2 mg/dL (8.7-10.4); Glucose 112 mg/dL (74-106)
--- NOTE | 2025-06-21 23:58 | DVHHPRES ---
History of Present Illness Resident Creating Document: DAREN FERREIRA RESIDENT History of Present Illness Fiorella Fulton is a 34-year-old female with past medical history of cirrhosis with esophageal varices, anorexia nervosa, PCOS, anxiety, autism, ADHD who presented to the hospital with complaints of hematemesis and abdominal pain since 1 day. she reports of 4 episodes of hematemesis. The abdominal pain is 8 on 10 in intensity, dull, on and off, radiating to the back. She also complains of associated nausea, dizziness and lightheadedness. She reports of being hospitalized 5 times in the past year for hematemesis. She has had 2 paracentesis. Last bowel movement reported yesterday, nonbloody. She visited [facility] from where she was referred here. PMHx:cirrhosis with esophageal varices, anorexia nervosa, PCOS, anxiety, autism, ADHD PSHx: None Family history: nonrelevant Social history: 6 alcoholic drinks a day, last drink yesterday. Lives alone in [place] Home medication: Lasix, folic acid, Protonix, hydroxyzine, trazodone Allergic history: seasonal allergies Review of Systems Review of Systems General: patient denies fever, fatigue, weaknes, sweating, any recent changes in appetite and weight HEENT: No headaches, visiual changes, hearing loss, tinnitus, nasal congestion and discharge, and sore throat. complains of dizziness and lightheadedness Cardiovascular: Denies chest pain, palpitations, dyspnea on exertion, orthopnea, or claudication. Respiratory: No cough, and wheezing. Gastrointestinal: complains of hematemesis and abdominal pain Genitourinary: No dysuria, hematuria, discharge, frequency, urgency, nocturia, incontinence, and urinary retention. Endocrine: No heat or cold intolerance, polydipsia, polyuria, and polyphagia. Neurological: No dizziness, extremity weakness and numbness, tremors, gait disturbance, seizures, and memory impairment. Psychiatric: Denies depression, anxiety,or insomnia. Musculoskeletal: Denies neck pain, stiffness and swelling, back pain, muscle weakness, joint pain, stiffness, swelling, or limited range of motion. Skin: No rashes, itching, skin lesion, changes in hair, nail, skin texture and breast. Hematologic/Lymphatic: Denies easy bruising, bleeding tendencies, or lymph node enlargement. Allergies: Coded Allergies: NO KNOWN ALLERGIES (Unverified , 02/04/24) Exam Vital Signs Vital Signs Date Time Temp Pulse Resp B/P (MAP) Pulse Ox O2 Delivery O2 Flow Rate FiO2 06/21/25 22:00 98.1 100 15 112/72 (85) 99 98.1 06/21/25 22:00 Room Air* 0 21 Exam General Appearance: Alert, Oriented X3, Cooperative, in acute distress HEENT: Atraumatic, PERRLA, EOMI, Mucous membrane dry Respiratory: Clear to auscultation, Normal air movement Cardiovascular: Regular rate, Normal S1, Normal S2, No murmurs, no chest wall tenderness Abdominal: Normal bowel sounds, Soft, No masses. Diffuse abdominal tenderness present Extremities: No clubbing, No cyanosis, No edema, Normal pulses, No tenderness/swelling Skin: No rashes, No breakdown, No significant lesion Neuro: Normal gait, Normal speech, Strength at 5/5 X4 ext, Normal tone, Sensation intact, Cranial nerves 3-12 NL, Reflexes 2+ Psych/Mental Status: Mental status NL, Mood NL Labs/Xrays Labs Test 06/21/25 21:33 Range/Units Prothrombin Time 15.6 H 9.3-11.8 sec Prothrombin Time INR 1.54 H 0.9-1.15 Sodium Level 141 136-145 mmol/L Potassium Level 4.7 3.5-5.1 mmol/L Chloride Level 106 98-107 mmol/L Carbon Dioxide Level 21 20-31 mmol/L Anion Gap 14 5-15 Blood Urea Nitrogen 11 9-23 mg/dL Creatinine 0.64 0.550-1.02 mg/dL Glomerular Filtration Rate Calc 117 >90 mL/min BUN/Creatinine Ratio 17.2 10.0-20.0 Serum Glucose 112 H 74-106 mg/dL Calcium Level 8.2 L 8.7-10.4 mg/dL Total Bilirubin 6.1 H 0.2-1.0 mg/dL Aspartate Amino Transferase (AST) 222 H 13-40 U/L Alanine Aminotransferase (ALT) 41 H 7-40 U/L Alkaline Phosphatase 128 H 46-116 U/L Total Protein 6.7 5.7-8.2 g/dL Albumin 3.3 3.2-4.8 g/dL SEPSIS Sepsis Screen Date sepsis recognized/suspect: Jun 21, 2025 Time Sepsis recognized/suspect: 2199 Recent Procedure: No On Antibiotic Therapy: No Respiratory Rate >20: No Heart Rate >90: No Temp<36 C (96.8 F) or >38.3 C: No SBP <90 or MAP <65 mmHG: No New Acute Mental Status Change: No Is the patient on CPAP, BIPAP,: No Physician Orders Stool Occult Blood (06/21/25 21:22) Vital Signs Date Time Temp Pulse Resp B/P (MAP) Pulse Ox O2 Delivery O2 Flow Rate FiO2 06/21/25 22:00 98.1 100 15 112/72 (85) 99 98.1 06/21/25 22:00 Room Air* 0 21 06/21/25 21:22 98.4 102 18 108/71 96 98.4 Assessment/Plan Assessment/Plan Assessment and plan Esophageal varices GI bleed due to above Liver cirrhosis Alcoholic liver disease Transaminitis due to above octreotide drip IV fluids Protonix Morphine Stool occult blood, Clostridium difficile Folic acid, thiamine NPO Acute complicated UTI IV ceftriaxone Urine culture, blood culture urinalysis IV fluids Anxiety continue hydroxyzine p.r.n. PCOS Autism ADHD history of anorexia nervosa follow up with PCP on discharge PUD prophylaxis: protonix 40mg DVT prophylaxis: none due to risk of bleeding Barriers to discharge: Medical diagnosis and management in progress. Patient lives alone. Independent for ADL. PCP: None Specialist Relevent To Admission: GI Case discussed with Dr. Trammell. Code Status: Full Code. Complex patient care discussion needed. Spend total 37 minutes for bedside assessment, case discussion and management. Plan discussed with: Patient Visit Coding STANDARD RES Billing Provider: TOSIN TRAMMELL MD Date of Service if different f: Jun 21, 2025 Common Visit Codes: [id number] INP/OBS CARE (HIGH) Secondary Visit Codes: [id number] CARE PLAN 30 MINUTES DAREN FERREIRA RESIDENT Jun 21, 2025 23:58
[2025-06-22 00:27] LABS: Nucleated Red Blood Cells % 0.1 %
[2025-06-22 00:30] LABS: Hematocrit 34.1 % (36.0-46.0); Hemoglobin 11.9 g/dL (12.2-16.2); Mean Corpuscular Hemoglobin 37.5 pg (28.0-32.0); Mean Corpuscular Volume 107.5 fL (80.0-100.0)
[2025-06-22] MEDS: SODIUM CHLORIDE 0.9% 1,000 ML IV ONE ×2 (00:45→01:24)
[2025-06-22] MEDS: OCTREOTIDE ACETATE 500 MCG in SODIUM CHL 0.9% 99 ML IV SCH (00:45)
[2025-06-22] MEDS: ONDANSETRON HCL 4 MG/2 ML VIAL IV ONE ×2 (00:45→01:43)
[2025-06-22] MEDS: FOLIC ACID 1 MG in D5W 5% 50 ML INJ ONE (00:45)
[2025-06-22] MEDS: OCTREOTIDE ACETATE 100 MCG/ML VL ONE (01:41)
[2025-06-22] MEDS: OCTREOTIDE ACETATE 500 MCG/ML VL ONE ×2 (01:41→07:24)
[2025-06-22] MEDS: PANTOPRAZOLE 40 MG/10 ML VIAL INJ IV ONE ×2 (01:43→02:20)
[2025-06-22 01:51] LABS: Urine Budding Yeast OCCASIONAL /hpf (None Seen); Urine Protein, UAD 1+ (Negative)
[2025-06-22] MEDS: OCTREOTIDE ACETATE 100 MCG in SODIUM CHL 0.9% 50 ML IV ONE (02:01)
[2025-06-22 02:04] LABS: Amphetamine Screen, Urine Neg (NEGATIVE); Barbiturate Scree,Urine Neg (NEGATIVE); Benzodiazephine Screen, Urine Neg (NEGATIVE); Cannabinoid Screen, Urine Neg (NEGATIVE); Cocaine Screen, Urine Neg (NEGATIVE); Opiate Scree,Urine Neg (NEGATIVE); Phencyclidine Screen, Urine Neg (NEGATIVE)
[2025-06-22] MEDS: PANTOPRAZOLE 80 MG in SODIUM CHL 0.9% 100 ML IV ONE (02:20)
[2025-06-22] MEDS: THIAMINE 100mg/ml INJ (200mg/2ml VIAL) IV ONE (02:21)
[2025-06-22] MEDS: PANTOPRAZOLE 40mg/50ML NS AE 50 ML IV SCH (02:56)
[2025-06-22] MEDS: MORPHINE SULFATE INJ 2 MG/ml SYRG IV ONE ×2 (03:38→10:25)
[2025-06-22] MEDS: MORPHINE SULFATE 4 MG/ML SYR/VIAL ONE (03:43)
[2025-06-22] MEDS: ONDANSETRON HCL 4 MG/2 ML VIAL IV PRN (04:50)
[2025-06-22 06:01] LABS: Nucleated Red Blood Cells % 0.1 %
[2025-06-22 06:04] LABS: Hematocrit 30.5 % (36.0-46.0); Hemoglobin 10.7 g/dL (12.2-16.2); Mean Corpuscular Hemoglobin 37.7 pg (28.0-32.0); Mean Corpuscular Volume 107.6 fL (80.0-100.0)
[2025-06-22 06:15] LABS: Alanine Aminotransferase 37 U/L (7-40); Alkaline Phosphatase 104 U/L (46-116); Anion Gap 10 (5-15); BUN/Creatinine Ratio 15.6 (10.0-20.0); Blood Urea Nitrogen 10 mg/dL (9-23); Carbon Dioxide 23 mmol/L (20-31); Glucose 90 mg/dL (74-106); Magnesium 1.7 mg/dL (1.6-2.6); Potassium 4.7 mmol/L (3.5-5.1); Sodium 142 mmol/L (136-145); Total Protein 6.0 g/dL (5.7-8.2)
[2025-06-22 06:18] LABS: Albumin 2.9 g/dL (3.2-4.8); Bilirubin, Total 6.4 mg/dL (0.2-1.0); Calcium 7.7 mg/dL (8.7-10.4); Chloride 109 mmol/L (98-107)
[2025-06-22 07:45] VITALS: PULSE 98; RESP 14; O2SAT 95
[2025-06-22] MEDS: MAGNESIUM SULFATE 1GM/100ML 100 ML IV ONE (09:19)
[2025-06-22] MEDS: PHYTONADIONE (VIT K)10 MG/ML 1ML VIAL SUBCUT ONE (09:20)
--- NOTE | 2025-06-22 09:22 | DVH ---
ABDOMINAL ULTRASOUND CLINICAL HISTORY: Transaminitis TECHNIQUE: Multiple grayscale and color Doppler ultrasound images were obtained of the abdomen. WID: COMPARISON: US ABDOMEN LIMITED on DOS: 07/17/24 FINDINGS: Liver and Biliary System: Increased echogenicity, Increased sized measuring 19.1 cm. No focal hepatic observations. No intrahepatic bile duct dilatation. The common duct is not visualized. The gallbladder contains cholelithiasis and gallbladder sludge. No wall thickening. Pancreas: Visualized portions are unremarkable. Kidneys: The right kidney is 9.8 cm . No hydronephrosis, increased echogenicity, shadowing stone, or focal lesion. IMPRESSION: 1. Hepatomegaly with diffuse hepatic steatosis. 2. Cholelithiasis and gallbladder sludge without acute cholecystitis or biliary ductal dilatation.
[2025-06-22] MEDS ORDERED: MORPHINE SULFATE INJ 2 MG/ml SYRG IV PRN (09:30)
[2025-06-22] MEDS ORDERED: MORPHINE SULFATE 4 MG/ML SYR/VIAL IV PRN (10:15)
[2025-06-22] MEDS: THIAMINE 100mg/ml INJ (200mg/2ml VIAL) IV SCH (10:21)
[2025-06-22] MEDS: FOLIC ACID 1 MG in D5W 5% 50 ML INJ SCH (11:23)
[2025-06-22 11:57] VITALS: BP 113/69; PULSE 91; RESP 16; TEMP 98.7; O2SAT 96
[2025-06-22] MEDS ORDERED: PANT1INJ3 PO (12:32)
[2025-06-22] MEDS ORDERED: HYDR-3682 PO (12:32)
[2025-06-22] MEDS ORDERED: LACT10SO3 PO (12:36)
[2025-06-22 12:59] VITALS: BP 113/69; PULSE 91; RESP 16; TEMP 98.7; O2SAT 96
[2025-06-22 13:27] LABS: Hematocrit 31.4 % (36.0-46.0); Hemoglobin 10.3 g/dL (12.2-16.2)
[2025-06-22] MEDS: SUCRALFATE 1 GM/10 ML ORAL SUSP PO SCH (13:47)
[2025-06-22 14:20] LABS: COVID19 ANTIGEN SOFIA FIA NEGATIVE (NEGATIVE)
--- NOTE | 2025-06-22 14:37 | DVHINCON2 ---
GI Consult Consult Note GI consult note Date of Consultation: 06/22/2025 Chief Complaint: GI bleed Referring Physician: H&P: 34-year-old female with past medical history of cirrhosis with esophageal varices, anorexia, PCOS, anxiety, autism, ADHD admitted with complains of hematemesis abdominal pain for two days. Patient admits to having four episodes of hematemesis, last episode being yesterday. Complaining of generalized abdominal pain. Last bowel movement was Wednesday. No melena or red blood in stool. Patient has had multiple EGDs in past last EGD October 2024 in the hospital in [place], unsure about results Operative Report DATE OF OPERATION: 07/18/24 PROCEDURE: Upper Endoscopy with biopsy PREOPERATIVE INDICATION: The patient is a 33 -year-old female undergoing endoscopy for upper GI bleed POSTOPERATIVE DIAGNOSES: 1. 1-2 cm sliding-type hiatal hernia with grade a to B linear erosive esophagitis 2. Patient had trace distal esophageal varices without any stigmata of active bleeding 3. Moderate portal hypertension gastropathy with hyperemia erythema and increase oozing from biopsy sites 4. Otherwise normal examination up to the 2nd part of the duodenal with no active bleeding and no fresh or old blood in the upper GI tract PROCEDURE PERFORMED BY: Bekah Honeycutt Past Medical History: cirrhosis with esophageal varices, anorexia nervosa, PCOS, anxiety, autism, ADHD Past Surgical History: Denies Social History: NO smoking, +drinking ETOH Family History: Noncontributory Review of Systems: Constitutional: no fever, chill, weight loss HEENT: no eye pain, no hearing loss, no oral lesion, no scleral icterus Heart: no chest pain, no chest pressure Lung: no cough, no dyspnea with exertion Abdomen: see HPI Physical exam: General: NAD, AAOX3 Chest: lung ryan clear to auscultation Heart: RRR, no murmur Abdomen: non-distended,+ tenderness to palpation, +BS Labs: Labs Test 06/22/25 12:59 06/22/25 12:08 06/22/25 09:11 06/22/25 05:33 Range/Units Hemoglobin 10.3 L 12.2-16.2 g/dL Hematocrit 31.4 L 36.0-46.0 % Influenza Type A Antigen Negative Negative Influenza Type B Antigen Negative Negative SARS-CoV-2 Antigen (Rapid) Negative NEGATIVE Ammonia 106 H 11-32 umol/L White Blood Count 6.4 4.4-10.8 10^3/uL Red Blood Count 2.83 L 4.0-5.20 10^6/uL Mean Corpuscular Volume 107.6 H 80.0-100.0 fL Mean Corpuscular Hemoglobin 37.7 H 28.0-32.0 pg Mean Corpuscular Hemoglobin Concent 35.1 32.0-36.0 g/dL Red Cell Distribution Width 15.2 H 11.8-14.3 % Platelet Count 65 L 140-450 10^3/uL Mean Platelet Volume 9.1 6.9-10.8 fL Neutrophils (%) (Auto) 62.5 37.0-80.0 % Lymphocytes (%) (Auto) 20.4 10.0-50.0 % Monocytes (%) (Auto) 16.2 H 0.0-12.0 % Eosinophils (%) (Auto) 0.2 0.0-7.0 % Basophils (%) (Auto) 0.7 0.0-2.0 % Neutrophils # (Auto) 4.0 1.6-8.6 10 ^3/uL Lymphocytes # (Auto) 1.3 0.4-5.4 10 ^3/uL Monocytes # (Auto) 1.0 0-1.3 10 ^3/uL Eosinophils # (Auto) 0 0-0.8 10 ^3/uL Basophils # (Auto) 0 0-0.2 10 ^3/uL Nucleated Red Blood Cells 0.1 % Reticulocyte Count (auto) 2.84 H 0.5-1.5 % Sodium Level 142 136-145 mmol/L Potassium Level 4.7 3.5-5.1 mmol/L Chloride Level 109 H 98-107 mmol/L Carbon Dioxide Level 23 20-31 mmol/L Anion Gap 10 5-15 Blood Urea Nitrogen 10 9-23 mg/dL Creatinine 0.64 0.550-1.02 mg/dL Glomerular Filtration Rate Calc 117 >90 mL/min BUN/Creatinine Ratio 15.6 10.0-20.0 Serum Glucose 90 74-106 mg/dL Calcium Level 7.7 L 8.7-10.4 mg/dL Phosphorus Level 3.4 2.4-5.1 mg/dL Magnesium Level 1.7 1.6-2.6 mg/dL Total Bilirubin 6.4 H 0.2-1.0 mg/dL Direct Bilirubin 3.9 H <0.3 mg/dL Aspartate Amino Transferase (AST) 197 H 13-40 U/L Alanine Aminotransferase (ALT) 37 7-40 U/L Alkaline Phosphatase 104 46-116 U/L Total Protein 6.0 5.7-8.2 g/dL Albumin 2.9 L 3.2-4.8 g/dL Beta HCG, Quantitative < 0.0 L 1.5-4.2 mIU/mL Plasma/Serum Blood Alcohol 3.3 <10 mg/dL Test 06/22/25 01:20 06/21/25 21:33 Range/Units Urine Color Dark-yellow Yellow Urine Clarity Turbid H Clear Urine pH 6.0 5.0-9.0 Urine Specific [place] 1.027 1.001-1.035 Urine Protein 1+ H Negative Urine Ketones 1+ H Negative Urine Blood Negative Negative /uL Urine Nitrite 2+ H Negative Urine Bilirubin 1+ H Negative Urine Urobilinogen Normal Negative mg/dL Urine Leukocyte Esterase 2+ Negative /uL Urine RBC 6 0 - 4 /hpf Urine Microscopic WBC 66 H 0-5 /HPF Urine Squamous Epithelial Cells Mod <5 /hpf Urine Bacteria Few H None Seen /hpf Urine Mucus Few None Seen Urine Yeast (Budding) Occasional None Seen /hpf Urine Glucose Normal Normal mg/dL Urine Opiates Screen Neg NEGATIVE Urine Fentanyl Screen Neg NEGATIVE Urine Barbiturates Screen Neg NEGATIVE Urine Phencyclidine Screen Neg NEGATIVE Urine Amphetamines Screen Neg NEGATIVE Urine Benzodiazepines Screen Neg NEGATIVE Urine Cocaine Screen Neg NEGATIVE Urine Cannabinoids Screen Neg NEGATIVE Prothrombin Time 15.6 H 9.3-11.8 sec Prothrombin Time INR 1.54 H 0.9-1.15 Imaging: Abdominal ultrasound IMPRESSION: 1. Hepatomegaly with diffuse hepatic steatosis. 2. Cholelithiasis and gallbladder sludge without acute cholecystitis or biliary ductal dilatation. Assessment: Abdominal pain Hematemesis Hepatomegaly Cholelithiasis History of gastritis Plan: Discussed with Dr. Honeycutt Protonix and Carafate Monitor labs Supportive treatment recommended at this time Clear liquid diet We will continue to monitor patient Thank you for this consult Date of Service: Jun 22, 2025 Billing Provider: ALBERT SHAH Common Visit Codes: CONSULT ONLY Consultation Codes: [id number] CONSULT <60MIN ALBERT SHAH Jun 22, 2025 14:37
[2025-06-22] MEDS: LACTULOSE 20Gm/30ML SOLN PO ONE (15:31)
[2025-06-22] MEDS: D5W/SOD CHLO 0.9% 1,000 ML IV SCH (15:53)
[2025-06-22 17:00] VITALS: BP 105/73; PULSE 87; RESP 16; TEMP 98; O2SAT 96
--- NOTE | 2025-06-22 18:32 | DVHPNRES ---
Progress Note Date Seen: Jun 22, 2025 Resident Creating Document: MACIEL MCDANIEL RESIDENT Has the PT tested + for MRSA If YES, has PT been informed?: No Medical Necessity Reason Pt with a Central, PICC or Fol: No Subjective Review of Systems PHI: Fiorella Lyon is a 34-year-old female, with past medical history of cirrhosis with esophageal varices, anorexia nervosa, PCOS, anxiety, autism, ADHD. the patient came to the [facility] with chief complaint of 1 day of hematemesis and abdominal pain. The patient reported 4 episodes of hematemesis, with black-colored thick vomit with foul smell. The abdominal pain is localized in the epigastric area, 8/10 in intensity, intermittent, colicky like, radiating to the back with similar characteristics; associated with nausea, dizziness and lightheadedness. The patient reports of being hospitalized 5 times in the past year for hematemesis. She had a cauterization at [facility] 2 years ago. She has had 2 paracentesis. Last bowel movement reported yesterday, nonbloody. Due to worsening of her symptoms the patient visited [facility] from where she was referred to [facility]. patient denies fever, chills, diahrrea, melena or other symptoms. In the ED she was found tachycardic 102bpm, with general weakness. The patient was admitted for further assessment and management. PMHx:cirrhosis with esophageal varices, anorexia nervosa, PCOS, anxiety, autism, ADHD PSHx: None Family history: nonrelevant Social history: 6 alcoholic drinks a day, last drink yesterday. Lives alone in [place] Home medication: Lasix, folic acid, Protonix, hydroxyzine, trazodone Allergic history: seasonal allergies Hospital course: On 06/22/25, the patient was evaluated and examined at bedside. The patient's VS, labs and chart was reviewed. The patient still has nausea and general weakness. Since admission no episode of hematemesis has been reported. The patient is receiving IV octeotride, IV pantoprazol. Also, Zofran, Carafate, folic and tiamine was added. The UA is positive for UTI, IV antibiotics (Ceftriaxone) was started. The patient's Hb is 10.7mg/dl, we are monitoring H&H b.i.d. Type and screen was requested. Liver US showed: Hepatomegaly with diffuse hepatic steatosis. Cholelithiasis and gallbladder sludge without acute cholecystitis or biliary ductal dilatation. GI team was consulted, they recommended to continue with medical management, no EGD was recommended at this time. We will continue following the progress of this patient closely. Review of Systems General: General weakness and fatigue. patient denies fever. HEENT: No headaches, visiual changes, hearing loss, tinnitus, nasal congestion and discharge, and sore throat. complains of dizziness and lightheadedness Cardiovascular: Denies chest pain, palpitations, dyspnea on exertion, orthopnea, or claudication. Respiratory: No cough, and wheezing. Gastrointestinal: complains of hematemesis and abdominal pain. Genitourinary: No dysuria, hematuria, discharge, frequency, urgency, nocturia, incontinence, and urinary retention. Endocrine: No heat or cold intolerance, polydipsia, polyuria, and polyphagia. Neurological: No dizziness, extremity weakness and numbness, tremors, gait disturbance, seizures, and memory impairment. Psychiatric: Denies depression, anxiety,or insomnia. Musculoskeletal: Denies neck pain, stiffness and swelling, back pain, muscle weakness, joint pain, stiffness, swelling, or limited range of motion. Skin: No rashes, itching, skin lesion, changes in hair, nail, skin texture and breast. Hematologic/Lymphatic: Denies easy bruising, bleeding tendencies, or lymph node enlargement. Allergies: NO KNOWN ALLERGIES (Unverified , 02/04/24) Objective vital signs Vital Sign Date Time Temp Pulse Resp B/P (MAP) Pulse Ox O2 Delivery O2 Flow Rate FiO2 06/22/25 17:00 98.0 87 16 105/73 (84) 96 98.0 06/22/25 11:57 Room Air* 0 21 Total Intake and Output 06/21/25 06/21/25 06/22/25 15:00 23:00 07:00 Intake Total 1591 ml Balance 1591 ml medications Current Medications Medications Dose Ordered Sig/Hien Route Start Time Stop Time Status Last Admin Dose Admin Octreotide Acetate 500 mcg/ Sodium Chloride 100 ml @ 10 mls/hr Q10H IV 06/22/25 00:45 06/22/25 07:24 10 MLS/HR Pantoprazole Sodium 50 ml @ 10 mls/hr Q5H IV 06/22/25 00:45 06/22/25 10:25 10 MLS/HR Ondansetron HCl 4 mg Q4HPRN PRN IV 06/22/25 00:45 06/22/25 08:50 4 MG Thiamine HCl 100 mg DAILY IV 06/22/25 10:00 06/22/25 10:21 100 MG Folic Acid 1 mg/ Dextrose 50.2 ml @ 200.8 mls/ hr DAILY INJ 06/22/25 10:00 06/22/25 11:23 200.8 MLS/HR Trazodone HCl 50 mg HS PO 06/22/25 22:00 Dextrose/Sodium Chloride 1,000 ml @ 75 mls/hr [id number] IV 06/22/25 09:00 06/22/25 15:53 75 MLS/HR Ceftriaxone Sodium/Dextrose 50 ml @ 50 mls/hr DAILY IV 06/23/25 10:00 Metronidazole 100 ml @ 100 mls/hr Q8HR IV 06/22/25 22:00 Sucralfate 1 gm QID@0600,1130,1700,2200 PO 06/22/25 11:30 06/22/25 13:47 1 GM Morphine Sulfate 1 mg Q8H PRN IV 06/22/25 10:15 Examination General Appearance: Pale, Alert, Oriented X3, Cooperative, mild acute distress HEENT: Atraumatic, PERRLA, EOMI, dry mucosas. Respiratory: Normal air movement, no roncus or crackles. Cardiovascular: Tachycardic, Normal S1, Normal S2, No murmurs, no chest pain on palpation of the chest. Abdominal: Tenderness on deep palpation on epigastric area, liver palpable under the costal border. Normal bowel sounds, Soft. Extremities: No clubbing, No cyanosis, No edema, Normal pulses, No tenderness/swelling Skin: No breakdown, No significant lesion Neuro: Normal speech, Strength at 5/5 X4 ext, Normal tone, Sensation intact, Cranial nerves 3-12 NL, Psych/Mental Status: Mental status NL, Mood NL laboratory and microbiology Laboratory Tests 06/22/25 12:59 06/22/25 05:33 Test 06/22/25 05:33 Range/Units Serum Glucose 90 74-106 mg/dL Problem List/Assessment/Plan Problem List/Assessment/Plan #Upper GI bleeding secondary to esophageal varices #Chronic Liver cirrhosis #Chronic alcoholic liver disease #Transaminitis due to above #Sinus Tachycardia IV Octreotide drip IV fluids IVProtonix Morphine Stool occult blood, Clostridium difficile Folic acid, thiamine NPO. #Acute complicated UTI, possible cystitis IV ceftriaxone Urine culture, blood culture urinalysis IV fluids #Chronic Anxiety disorder continue hydroxyzine p.r.n. #Chronic anorexia nervosa purging type. Medication reconciliation #Polycystic Ovary syndrome Medication reconciliation #Autism spectrum disorder #Hx of ADHD Medication reconciliation Diet: NPO DVT prophylaxis: SCD GI prophylaxis: Protonix Code status: full code Disposition: Telemetry PCP: No established, patient recently moved to from [facility] Patient's status and plan discussed with the patient >30min. Case discussed with Dr. Gautam Plan discussed with: Patient My Orders My Orders Orders - MACIEL MCDANIEL RESIDENT Procedure Category Date Status Time Sequential MARCELLA 06/22/25 In Process Compression Device 07:14 Complete Blood Count LAB 06/23/25 Verified 04:00 Comprehensive LAB 06/23/25 Verified Metabolic Panel 04:00 Abdomen Limited US 06/22/25 Resulted 08:41 Morphine Sulfate PHA 06/22/25 In Process Injection 10:15 Visit Coding STANDARD RES Billing Provider: GISSELLE JOE MD Date of Service if different f: Jun 22, 2025 Common Visit Codes: [id number] INP/OBS CARE(HIGH) MACIEL MCDANIEL RESIDENT Jun 22, 2025 18:31
--- NOTE | 2025-06-22 19:25 | ECG ---
[facility] Test Date: 2025-06-22 Test Time: 09:41:06 Pat Name: KEYUR MARTINEZ Department: [facility] ED Patient ID: [id number] Room: 0297T Gender: F [employer]car [employer]: nik : [id number] Requested By: CRYSTAL HARMON Order Number: [id number] Reading MD: Pollo Parrish Measurements Intervals Garrett Rate: 80 P: 55 ME: 141 QRS: 41 QRSD: 75 T: 10 QT: 436 QTc: 503 Interpretive Statements Sinus rhythm Borderline prolonged QT interval Electronically Signed On 06-28-2025 16:20:02 PST by Pollo Parrish Please click the below link to view image of tracing.
[2025-06-22 19:36] LABS: Hemoglobin 9.6 g/dL (12.2-16.2)
[2025-06-22 19:39] LABS: Hematocrit 28.6 % (36.0-46.0)
[2025-06-22 20:00] VITALS: PULSE 85; PULSE 87; RESP 18; O2SAT 97
[2025-06-22 21:00] VITALS: BP 100/67; PULSE 85; RESP 18; TEMP 97.5; O2SAT 97
--- NOTE | 2025-06-22 21:11 | DVH ---
CHEST RADIOGRAPH Indication: Baseline Technique: Single frontal view of the chest was obtained COMPARISON: XY CHEST PORTABLE on DOS: 07/17/24, XY CHEST PORTABLE on DOS: 02/05/24 FINDINGS: Lines and Tubes: None Lungs: Increased interstital prominence. This may represent pulmonary vascular congestion and/or viral pneumonia. Pleura: No effusion.No pneumothorax. Cardiomediastinal contours: Unremarkable Bones: Unremarkable IMPRESSION: Increased interstital prominence. This may represent pulmonary vascular congestion and/or viral pneumonia.
[2025-06-23] VITALS (8 sets, daily range): BP systolic 96–110; BP diastolic 63–76; PULSE 80–90; RESP 16–18; TEMP 97.1–98.4; O2SAT 96–99
[2025-06-23 06:51] LABS: Alanine Aminotransferase 30 U/L (7-40); Alkaline Phosphatase 84 U/L (46-116); Anion Gap 9 (5-15); BUN/Creatinine Ratio 14.1 (10.0-20.0); Blood Urea Nitrogen 10 mg/dL (9-23); Carbon Dioxide 24 mmol/L (20-31); Potassium 3.8 mmol/L (3.5-5.1); Sodium 140 mmol/L (136-145)
[2025-06-23 07:01] LABS: Albumin 2.7 g/dL (3.2-4.8); Bilirubin, Total 6.2 mg/dL (0.2-1.0); Calcium 7.5 mg/dL (8.7-10.4); Chloride 107 mmol/L (98-107); Glucose 113 mg/dL (74-106); Total Protein 5.2 g/dL (5.7-8.2)
[2025-06-23] MEDS: OCTREOTIDE ACETATE 500 MCG in SODIUM CHL 0.9% 99 ML IV SCH (07:30)
[2025-06-23 07:47] LABS: Hematocrit 26.7 % (36.0-46.0); Hemoglobin 9.1 g/dL (12.2-16.2); Mean Corpuscular Hemoglobin 37.0 pg (28.0-32.0); Mean Corpuscular Volume 108.8 fL (80.0-100.0); Nucleated Red Blood Cells % 0.4 %
[2025-06-23 10:30] LABS: Hematocrit 26.6 % (36.0-46.0); Hemoglobin 9.0 g/dL (12.2-16.2)
[2025-06-23] MEDS: hydrOXYzine HCL 10 MG TAB PO PRN (16:19)
[2025-06-23 16:29] LABS: Iron 135.0 ug/dL (50-170)
[2025-06-23 16:36] LABS: Total Iron Binding Capacity 173.0 ug/dL (250-425)
--- NOTE | 2025-06-23 21:12 | DVHPNRES ---
Progress Note Date Seen: Jun 23, 2025 Resident Creating Document: MACIEL MCDANIEL RESIDENT Has the PT tested + for MRSA If YES, has PT been informed?: No Medical Necessity Reason Pt with a Central, PICC or Fol: No Subjective Review of Systems PHI: Fiorella Lyon is a 34-year-old female, with past medical history of cirrhosis with esophageal varices, anorexia nervosa, PCOS, anxiety, autism, ADHD. the patient came to the [facility] with chief complaint of 1 day of hematemesis and abdominal pain. The patient reported 4 episodes of hematemesis, with black-colored thick vomit with foul smell. The abdominal pain is localized in the epigastric area, 8/10 in intensity, intermittent, colicky like, radiating to the back with similar characteristics; associated with nausea, dizziness and lightheadedness. The patient reports of being hospitalized 5 times in the past year for hematemesis. She had a cauterization at [facility] 2 years ago. She has had 2 paracentesis. Last bowel movement reported yesterday, nonbloody. Due to worsening of her symptoms the patient visited [facility] from where she was referred to [facility]. patient denies fever, chills, diahrrea, melena or other symptoms. In the ED she was found tachycardic 102bpm, with general weakness. The patient was admitted for further assessment and management. PMHx:cirrhosis with esophageal varices, anorexia nervosa, PCOS, anxiety, autism, ADHD PSHx: None Family history: nonrelevant Social history: 6 alcoholic drinks a day, last drink yesterday. Lives alone in [place] Home medication: Lasix, folic acid, Protonix, hydroxyzine, trazodone Allergic history: seasonal allergies Hospital course: On 06/22/25, the patient was evaluated and examined at bedside. The patient's VS, labs and chart was reviewed. The patient still has nausea and general weakness. Since admission no episode of hematemesis has been reported. The patient is receiving IV octeotride, IV pantoprazol. Also, Zofran, Carafate, folic and tiamine was added. The UA is positive for UTI, IV antibiotics (Ceftriaxone) was started. The patient's Hb is 10.7mg/dl, we are monitoring H&H b.i.d. Type and screen was requested. Liver US showed: Hepatomegaly with diffuse hepatic steatosis. Cholelithiasis and gallbladder sludge without acute cholecystitis or biliary ductal dilatation. GI team was consulted, they recommended to continue with medical management, no EGD was recommended at this time. We will continue following the progress of this patient closely. On 06/23/25, the patient was evaluated and examined at bedside. The patient's VS, labs and chart was reviewed. The patient reports improvement of nausea and general weakness. Since admission, the patient has not had episodes of hematemesis. Due to improvement and stop on hematemesis, the IV octeotride and pantoprazol drip was discontinued. Also, the telemetry was discontinued. The patient will continue with pantoprazol IV schedule, Zofran, Carafate, folic and tiamine. Spironolactone and lactulose was added due to elevate ammonia levels was added. The UA is positive for UTI, the patient continues receiving IV antibiotics (Ceftriaxone). The patient's Hb is 9.0 g/dl. We will continue monitoring H&H b.i.d. Type and screen was requested. Due to Liver US showed hepatomegaly with diffuse hepatic steatosis and Cholelithiasis and gallbladder sludge without acute cholecystitis or biliary ductal dilatation. GI team was consulted, they recommended to continue with medical management, no EGD was recommended at this time. We will continue following the progress of this patient closely. Review of Systems General: General weakness and fatigue. patient denies fever. HEENT: No headaches, visiual changes, hearing loss, tinnitus, nasal congestion and discharge, and sore throat. complains of dizziness and lightheadedness Cardiovascular: Denies chest pain, palpitations, dyspnea on exertion, orthopnea, or claudication. Respiratory: No cough, and wheezing. Gastrointestinal: complains of hematemesis and abdominal pain. Genitourinary: No dysuria, hematuria, discharge, frequency, urgency, nocturia, incontinence, and urinary retention. Endocrine: No heat or cold intolerance, polydipsia, polyuria, and polyphagia. Neurological: No dizziness, extremity weakness and numbness, tremors, gait disturbance, seizures, and memory impairment. Psychiatric: Denies depression, anxiety,or insomnia. Musculoskeletal: Denies neck pain, stiffness and swelling, back pain, muscle weakness, joint pain, stiffness, swelling, or limited range of motion. Skin: No rashes, itching, skin lesion, changes in hair, nail, skin texture and breast. Hematologic/Lymphatic: Denies easy bruising, bleeding tendencies, or lymph node enlargement. Allergies: NO KNOWN ALLERGIES (Unverified , 02/04/24) Objective vital signs Vital Sign Date Time Temp Pulse Resp B/P (MAP) Pulse Ox O2 Delivery O2 Flow Rate FiO2 06/23/25 17:08 98.0 84 17 110/76 (87) 98 98.0 06/23/25 08:00 Room Air* 0 21 Total Intake and Output 06/22/25 06/22/25 06/23/25 15:00 23:00 07:00 Intake Total 320 ml 500 ml 1700 ml Output Total 1200 ml Balance 320 ml 500 ml 500 ml medications Current Medications Medications Dose Ordered Sig/Hien Route Start Time Stop Time Status Last Admin Dose Admin Ondansetron HCl 4 mg Q4HPRN PRN IV 06/22/25 00:45 06/22/25 08:50 4 MG Thiamine HCl 100 mg DAILY IV 06/22/25 10:00 06/23/25 10:11 100 MG Folic Acid 1 mg/ Dextrose 50.2 ml @ 200.8 mls/ hr DAILY INJ 06/22/25 10:00 06/23/25 12:23 200.8 MLS/HR Trazodone HCl 50 mg HS PO 06/22/25 22:00 06/22/25 22:11 50 MG Dextrose/Sodium Chloride 1,000 ml @ 75 mls/hr [id number] IV 06/22/25 09:00 06/22/25 22:20 75 MLS/HR Ceftriaxone Sodium/Dextrose 50 ml @ 50 mls/hr DAILY IV 06/23/25 10:00 06/23/25 10:12 50 MLS/HR Metronidazole 100 ml @ 100 mls/hr Q8HR IV 06/22/25 22:00 06/23/25 16:19 100 MLS/HR Sucralfate 1 gm QID@0600,1130,1700,2200 PO 06/22/25 11:30 06/23/25 16:19 1 GM Morphine Sulfate 1 mg Q8H PRN IV 06/22/25 10:15 Pantoprazole Sodium 40 mg DAILY IV 06/24/25 10:00 Lactulose 30 ml DAILY PO 06/24/25 10:00 Spironolactone 25 mg DAILY PO 06/24/25 10:00 Hydroxyzine HCl 10 mg DAILY PRN PO 06/23/25 16:00 06/23/25 16:19 10 MG Examination General Appearance: Pale, Alert, Oriented X3, Cooperative, mild acute distress HEENT: Atraumatic, PERRLA, EOMI, dry mucosas. Respiratory: Normal air movement, no roncus or crackles. Cardiovascular: Tachycardic, Normal S1, Normal S2, No murmurs, no chest pain on palpation of the chest. Abdominal: Tenderness on deep palpation on epigastric area has improved, liver palpable under the costal border. Normal bowel sounds, Soft. Extremities: No clubbing, No cyanosis, No edema, Normal pulses, No tenderness/swelling Skin: Olivo and spider angiomas on chest and abdomen. No breakdown, No significant lesion Neuro: Normal speech, Strength at 5/5 X4 ext, Normal tone, Sensation intact, Cranial nerves 3-12 NL, Psych/Mental Status: Mental status NL, Mood NL laboratory and microbiology Laboratory Tests 06/23/25 09:59 06/23/25 05:39 Test 06/23/25 05:39 Range/Units Serum Glucose 113 H 74-106 mg/dL Problem List/Assessment/Plan Problem List/Assessment/Plan #Upper GI bleeding secondary to esophageal varices #Chronic Liver cirrhosis #Chronic alcoholic liver disease #Transaminitis due to above #Sinus Tachycardia IV Octreotide drip IV fluids IVProtonix Morphine Stool occult blood, Clostridium difficile Folic acid, thiamine NPO. Telemetry discontinued today 06/23/25 #Acute complicated UTI, possible cystitis IV ceftriaxone Urine culture, blood culture urinalysis IV fluids #Chronic Anxiety disorder continue hydroxyzine p.r.n. #Chronic anorexia nervosa purging type. Medication reconciliation #Polycystic Ovary syndrome Medication reconciliation #Autism spectrum disorder #Hx of ADHD Hydroxyzine po daily Diet:Clear liquid diet DVT prophylaxis: SCD GI prophylaxis: Protonix Code status: full code Disposition: Medsurge. PCP: No established, patient recently moved to from [facility] Patient's status and plan discussed with the patient >30min. Case discussed with Dr. Trammell Plan discussed with: Patient My Orders My Orders Orders - MACIEL MCDANIEL RESIDENT Procedure Category Date Status Time Discontinue Tele MARCELLA 06/23/25 In Process 14:27 Complete Blood Count LAB 06/24/25 Verified 04:00 Comprehensive LAB 06/24/25 Verified Metabolic Panel 04:00 Pantoprazole PHA 06/24/25 In Process (Protonix) 10:00 Lactulose Oral PHA 06/24/25 In Process 10:00 Spironolactone PHA 06/24/25 In Process (Aldactone) 10:00 Hydroxyzine Oral PHA 06/23/25 In Process (Vistaril Oral) 16:00 Visit Coding STANDARD RES Billing Provider: TOSIN TRAMMELL MD Date of Service if different f: Jun 23, 2025 Common Visit Codes: 03392-[id number] INP/OBS CARE(HIGH) MACIEL MCDANIEL RESIDENT Jun 23, 2025 21:12
--- NOTE | 2025-06-23 21:20 | DVHPN2 ---
Progress Note - Dictate Date Seen: Jun 23, 2025 Has the PT tested + for MRSA If YES, has PT been informed?: No Medical Necessity Reason Pt with a Central, PICC or Fol: No Subjective No new complaints vital signs Vital Sign Date Time Temp Pulse Resp B/P (MAP) Pulse Ox O2 Delivery O2 Flow Rate FiO2 06/23/25 17:08 98.0 84 17 110/76 (87) 98 98.0 06/23/25 08:00 Room Air* 0 21 Total Intake and Output 06/22/25 06/22/25 06/23/25 15:00 23:00 07:00 Intake Total 320 ml 500 ml 1700 ml Output Total 1200 ml Balance 320 ml 500 ml 500 ml medications Current Medications Medications Dose Ordered Sig/Hien Route Start Time Stop Time Status Last Admin Dose Admin Ondansetron HCl 4 mg Q4HPRN PRN IV 06/22/25 00:45 06/22/25 08:50 4 MG Thiamine HCl 100 mg DAILY IV 06/22/25 10:00 06/23/25 10:11 100 MG Folic Acid 1 mg/ Dextrose 50.2 ml @ 200.8 mls/ hr DAILY INJ 06/22/25 10:00 06/23/25 12:23 200.8 MLS/HR Trazodone HCl 50 mg HS PO 06/22/25 22:00 06/22/25 22:11 50 MG Dextrose/Sodium Chloride 1,000 ml @ 75 mls/hr [id number] IV 06/22/25 09:00 06/22/25 22:20 75 MLS/HR Ceftriaxone Sodium/Dextrose 50 ml @ 50 mls/hr DAILY IV 06/23/25 10:00 06/23/25 10:12 50 MLS/HR Metronidazole 100 ml @ 100 mls/hr Q8HR IV 06/22/25 22:00 06/23/25 16:19 100 MLS/HR Sucralfate 1 gm QID@0600,1130,1700,2200 PO 06/22/25 11:30 06/23/25 16:19 1 GM Morphine Sulfate 1 mg Q8H PRN IV 06/22/25 10:15 Pantoprazole Sodium 40 mg DAILY IV 06/24/25 10:00 Lactulose 30 ml DAILY PO 06/24/25 10:00 Spironolactone 25 mg DAILY PO 06/24/25 10:00 Hydroxyzine HCl 10 mg DAILY PRN PO 06/23/25 16:00 06/23/25 16:19 10 MG laboratory and microbiology Laboratory Tests 06/23/25 09:59 06/23/25 05:39 Test 06/23/25 05:39 Range/Units Serum Glucose 113 H 74-106 mg/dL Prognosis PLAN Protonix and Carafate Monitor labs Supportive treatment recommended at this time Clear liquid diet We will continue to monitor patien Plan discussed with: Other (Tara Lopez) THERESA CHAU MD Jun 23, 2025 21:20
[2025-06-23 22:26] LABS: Hematocrit 29.9 % (36.0-46.0); Hemoglobin 10.1 g/dL (12.2-16.2)
[2025-06-24 01:00] VITALS: BP 94/51; PULSE 80; RESP 18; TEMP 98.8; O2SAT 98
[2025-06-24 05:00] VITALS: BP 95/57; PULSE 89; RESP 18; TEMP 98.7; O2SAT 93
[2025-06-24 06:49] LABS: Hematocrit 27.2 % (36.0-46.0); Hemoglobin 9.3 g/dL (12.2-16.2); Mean Corpuscular Hemoglobin 37.4 pg (28.0-32.0); Mean Corpuscular Volume 110.0 fL (80.0-100.0); Nucleated Red Blood Cells % 0.2 %
[2025-06-24 07:04] LABS: Alanine Aminotransferase 29 U/L (7-40); Alkaline Phosphatase 99 U/L (46-116); Anion Gap 7 (5-15); BUN/Creatinine Ratio 9.1 (10.0-20.0); Carbon Dioxide 25 mmol/L (20-31); Sodium 140 mmol/L (136-145)
[2025-06-24 07:08] LABS: Albumin 2.6 g/dL (3.2-4.8); Bilirubin, Total 4.3 mg/dL (0.2-1.0); Blood Urea Nitrogen 6 mg/dL (9-23); Calcium 7.2 mg/dL (8.7-10.4); Chloride 108 mmol/L (98-107); Glucose 111 mg/dL (74-106); Potassium 3.4 mmol/L (3.5-5.1); Total Protein 5.1 g/dL (5.7-8.2)
[2025-06-24 08:00] VITALS: RESP 16
[2025-06-24 08:54] LABS: INR 1.42 (0.9-1.15); Partial Thromboplastin Time 31.6 SEC (24.5-34.5); Prothrombin Time 14.5 sec (9.3-11.8)
[2025-06-24] MEDS: PANTOPRAZOLE 40 MG/10 ML VIAL INJ IV SCH (09:24)
[2025-06-24] MEDS: POTASSIUM EFFERVESENT TAB 25 MEQ PO ONE (09:24)
[2025-06-24] MEDS: LACTULOSE 20Gm/30ML SOLN PO SCH (09:25)
[2025-06-24] MEDS: SPIRONOLACTONE 25 MG TAB PO SCH (09:25)
--- NOTE | 2025-06-24 13:01 | DVHDSRES ---
Discharge Summary Date of Admission Resident Creating Document: LORAINE ROSS RESIDENT Jun 21, 2025 at 23:57 Date of Discharge: Jun 24, 2025 Admitting Diagnosis Hematemesis likely from varices of cirrhosis of liver Labs/Diagnostic Data: Laboratory Results Test 06/24/25 06:25 06/23/25 11:06 06/23/25 05:39 06/22/25 12:08 White Blood Count 4.1 10^3/uL (4.4-10.8) Red Blood Count 2.48 10^6/uL (4.0-5.20) Hemoglobin 9.3 g/dL (12.2-16.2) Hematocrit 27.2 % (36.0-46.0) Mean Corpuscular Volume 110.0 fL (80.0-100.0) Mean Corpuscular Hemoglobin 37.4 pg (28.0-32.0) Mean Corpuscular Hemoglobin Concent 34.0 g/dL (32.0-36.0) Red Cell Distribution Width 14.9 % (11.8-14.3) Platelet Count 85 10^3/uL (140-450) Mean Platelet Volume 8.6 fL (6.9-10.8) Neutrophils (%) (Auto) 50.3 % (37.0-80.0) Lymphocytes (%) (Auto) 27.3 % (10.0-50.0) Monocytes (%) (Auto) 16.4 % (0.0-12.0) Eosinophils (%) (Auto) 4.5 % (0.0-7.0) Basophils (%) (Auto) 1.5 % (0.0-2.0) Neutrophils # (Auto) 2.1 10 ^3/uL (1.6-8.6) Lymphocytes # (Auto) 1.1 10 ^3/uL (0.4-5.4) Monocytes # (Auto) 0.7 10 ^3/uL (0-1.3) Eosinophils # (Auto) 0.2 10 ^3/uL (0-0.8) Basophils # (Auto) 0.1 10 ^3/uL (0-0.2) Nucleated Red Blood Cells 0.2 % Prothrombin Time 14.5 sec (9.3-11.8) Prothrombin Time INR 1.42 (0.9-1.15) Activated Partial Thromboplast Time 31.6 SEC (24.5-34.5) Sodium Level 140 mmol/L (136-145) Potassium Level 3.4 mmol/L (3.5-5.1) Chloride Level 108 mmol/L (98-107) Carbon Dioxide Level 25 mmol/L (20-31) Anion Gap 7 (5-15) Blood Urea Nitrogen 6 mg/dL (9-23) Creatinine 0.66 mg/dL (0.550-1.02) Glomerular Filtration Rate Calc 117 mL/min (>90) BUN/Creatinine Ratio 9.1 (10.0-20.0) Serum Glucose 111 mg/dL (74-106) Calcium Level 7.2 mg/dL (8.7-10.4) Magnesium Level 1.7 mg/dL (1.6-2.6) Total Bilirubin 4.3 mg/dL (0.2-1.0) Aspartate Amino Transferase (AST) 152 U/L (13-40) Alanine Aminotransferase (ALT) 29 U/L (7-40) Alkaline Phosphatase 99 U/L (46-116) Ammonia 35 umol/L (11-32) Total Protein 5.1 g/dL (5.7-8.2) Albumin 2.6 g/dL (3.2-4.8) Stool Occult Blood Positive (Negative) Stool Occult Blood Sample #3 (Negative) Iron Level 135 ug/dL (50-170) Total Iron Binding Capacity 173 ug/dL (250-425) Percent Iron Saturation 78.0 % (15-50) Ferritin 234.0 ng/mL (10-291) Influenza Type A Antigen Negative (Negative) Influenza Type B Antigen Negative (Negative) SARS-CoV-2 Antigen (Rapid) Negative (NEGATIVE) Test 06/22/25 09:11 06/22/25 05:33 06/22/25 01:20 Reticulocyte Count (auto) 2.84 % (0.5-1.5) Phosphorus Level 3.4 mg/dL (2.4-5.1) Direct Bilirubin 3.9 mg/dL (<0.3) Tumor Marker Alpha Fetoprotein 6.2 ng/mL (0.0-6.4) Beta HCG, Quantitative < 0.0 mIU/mL (1.5-4.2) Plasma/Serum Blood Alcohol 3.3 mg/dL (<10) Urine Color Dark-yellow (Yellow) Urine Clarity Turbid (Clear) Urine pH 6.0 (5.0-9.0) Urine Specific [place] 1.027 (1.001-1.035) Urine Protein 1+ (Negative) Urine Ketones 1+ (Negative) Urine Blood Negative /uL (Negative) Urine Nitrite 2+ (Negative) Urine Bilirubin 1+ (Negative) Urine Urobilinogen Normal mg/dL (Negative) Urine Leukocyte Esterase 2+ /uL (Negative) Urine RBC 6 /hpf (0 - 4) Urine Microscopic WBC 66 /HPF (0-5) Urine Squamous Epithelial Cells Mod /hpf (<5) Urine Bacteria Few /hpf (None Seen) Urine Mucus Few (None Seen) Urine Yeast (Budding) Occasional /hpf (None Urine Glucose Normal mg/dL (Normal) Urine Opiates Screen Neg (NEGATIVE) Urine Fentanyl Screen Neg (NEGATIVE) Urine Barbiturates Screen Neg (NEGATIVE) Urine Phencyclidine Screen Neg (NEGATIVE) Urine Amphetamines Screen Neg (NEGATIVE) Urine Benzodiazepines Screen Neg (NEGATIVE) Urine Cocaine Screen Neg (NEGATIVE) Urine Cannabinoids Screen Neg (NEGATIVE) Other Laboratory Tests 06/24/25 06:25 Brief Hx & Hospital Course: Keyur Lyon is a 34-year-old female, with past medical history of cirrhosis with esophageal varices, anorexia nervosa, PCOS, anxiety, autism, ADHD. the patient came to the [facility] with chief complaint of 1 day of hematemesis and abdominal pain. The patient reported 4 episodes of hematemesis, with black-colored thick vomit with foul smell. The abdominal pain is localized in the epigastric area, 8/10 in intensity, intermittent, colicky like, radiating to the back with similar characteristics; associated with nausea, dizziness and lightheadedness. The patient reports of being hospitalized 5 times in the past year for hematemesis. She had a cauterization at [facility] 2 years ago. She has had 2 paracentesis. Last bowel movement reported yesterday, nonbloody. Due to worsening of her symptoms the patient visited [facility] from where she was referred to [facility]. patient denies fever, chills, diahrrea, melena or other symptoms. In the ED she was found tachycardic 102bpm, with general weakness. The patient was admitted for further assessment and management. Hospital course-initial lab workup revealed mild anemia with microcytosis, thrombocytopenia, transaminitis. Patient was treated conservatively with IV fluid and pantoprazole and sucralfate. 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 Patient was put on clear liquid diet. Patient left AMA. Patient is counseled about the effect of leaving AMA. Patient's condition was undetermined on discharge. ROS Patient left AMA Assessment #Upper GI bleeding likely secondary to esophageal varices #Chronic Liver cirrhosis #Chronic alcoholic liver disease #Transaminitis due to above #Sinus Tachycardia #Acute complicated UTI, possible cystitis #Chronic Anxiety disorder #Chronic anorexia nervosa purging type. #Polycystic Ovary syndrome #Autism spectrum disorder #Hx of ADHD Plan Patient left AMA Plan of care discussed with Dr. Gautam Consults/Reason for consult [place] [address] Ph: [phone] DIAGNOSTIC IMAGING Diagnostic Imaging Report : [id number] Signed PATIENT: KEYUR MARTINEZ ACCT: [id number] UNIT: [id number] : 1990 LOC: [facility] ROOM / BED: [facility] / B AGE / SEX: 34 / F ADM STATUS: ADM IN SERVICE 57 ORDERING PHYSICIAN: MACIEL MCDANIEL RESIDENT PROCEDURE(s): CXR1 - CHEST XRAY 1 VIEW REASON: Baseline ORDER NUMBER(s): [id number], ACCESSION NUMBER(s): [id number] CHEST RADIOGRAPH Indication: Baseline Technique: Single frontal view of the chest was obtained COMPARISON: XY CHEST PORTABLE on DOS: 07/17/24, XY CHEST PORTABLE on DOS: 02/05/24 FINDINGS: Lines and Tubes: None Lungs: Increased interstital prominence. This may represent pulmonary vascular congestion and/or viral pneumonia. Pleura: No effusion.No pneumothorax. Cardiomediastinal contours: Unremarkable Bones: Unremarkable IMPRESSION: Increased interstital prominence. This may represent pulmonary vascular congestion and/or viral pneumonia. ATED BY: ELLIOT QUIJANO MD DICTATED DATE/TIME: 06/22/252107 SIGNED BY: ELLIOT QUIJANO MD SIGNED DATE/TIME: 06/22/252107 CC: Operations or Procedures [address] [address] Ph: [phone] DIAGNOSTIC IMAGING Diagnostic Imaging Report : [id number] Signed PATIENT: KEYUR MARTINEZ ACCT: [id number] UNIT: [id number] : 1990 LOC: OVERFLOW ROOM / BED: 1015-ER / A AGE / SEX: 34 / F ADM STATUS: ADM IN SERVICE 0841 ORDERING PHYSICIAN: MACIEL MCDANIEL RESIDENT PROCEDURE(s): ABDL - ABDOMEN LIMITED REASON: Transaminitis ORDER NUMBER(s): [id number], ACCESSION NUMBER(s): [id number] ABDOMINAL ULTRASOUND CLINICAL HISTORY: Transaminitis TECHNIQUE: Multiple grayscale and color Doppler ultrasound images were obtained of the abdomen. WID: COMPARISON: US ABDOMEN LIMITED on DOS: 07/17/24 FINDINGS: Liver and Biliary System: Increased echogenicity, Increased sized measuring 19.1 cm. No focal hepatic observations. No intrahepatic bile duct dilatation. The common duct is not visualized. The gallbladder contains cholelithiasis and gallbladder sludge. No wall thickening. Pancreas: Visualized portions are unremarkable. Kidneys: The right kidney is 9.8 cm . No hydronephrosis, increased echogenicity, shadowing stone, or focal lesion. IMPRESSION: 1. Hepatomegaly with diffuse hepatic steatosis. 2. Cholelithiasis and gallbladder sludge without acute cholecystitis or biliary ductal dilatation. ATED BY: ZOHREH GREEN MD DICTATED DATE/TIME: 06/22/25919 SIGNED BY: ZOHREH GREEN MD SIGNED DATE/TIME: 06/22/25919 CC: [address] [address] Ph: [phone] DIAGNOSTIC IMAGING Diagnostic Imaging Report : [id number] Signed PATIENT: KEYUR MARTINEZ ACCT: [id number] UNIT: [id number] : 1990 LOC: [facility] ROOM / BED: 0297T / B AGE / SEX: 34 / F ADM STATUS: ADM IN SERVICE 57 ORDERING PHYSICIAN: MACIEL MCDANIEL RESIDENT PROCEDURE(s): CXR1 - CHEST XRAY 1 VIEW REASON: Baseline ORDER NUMBER(s): [id number], ACCESSION NUMBER(s): [id number] CHEST RADIOGRAPH Indication: Baseline Technique: Single frontal view of the chest was obtained COMPARISON: XY CHEST PORTABLE on DOS: 07/17/24, XY CHEST PORTABLE on DOS: 02/05/24 FINDINGS: Lines and Tubes: None Lungs: Increased interstital prominence. This may represent pulmonary vascular congestion and/or viral pneumonia. Pleura: No effusion.No pneumothorax. Cardiomediastinal contours: Unremarkable Bones: Unremarkable IMPRESSION: Increased interstital prominence. This may represent pulmonary vascular congestion and/or viral pneumonia. ATED BY: ELLIOT QUIJANO MD DICTATED DATE/TIME: 06/22/252107 SIGNED BY: ELLIOT QUIJANO MD SIGNED DATE/TIME: 06/22/252107 CC: Condition at Discharge: Undetermined Final Diagnosis/Problems List #Upper GI bleeding likely secondary to esophageal varices #Chronic Liver cirrhosis #Chronic alcoholic liver disease #Transaminitis due to above #Sinus Tachycardia #Acute complicated UTI, possible cystitis #Chronic Anxiety disorder #Chronic anorexia nervosa purging type. #Polycystic Ovary syndrome #Autism spectrum disorder #Hx of ADHD Discharge Disposition: AMA Discharge Instruct/Medications Diet: See Comment Diet comment: AMA Activity: Activity comment: Patient left AMA Follow Up/Referral: Patient left AMA Medications: Patient AMA Scheduled Furosemide (Furosemide), 40 MG PO DAILY Hydroxyzine Hcl (Hydroxyzine Hcl), 1 TAB PO DAILYP, (Reported) Lactulose (Lactulose), 10 GM PO DAILY, (Reported) Pantoprazole Sodium (Pantoprazole Sodium), 40 MG PO DAILY, (Reported) Spironolactone (Aldactone), 100 MG PO DAILY Miscellaneous Medications Folic Acid (Folic Acid), 1 MG PO, (Reported) Thiamine Hcl (Vitamin B-1), 100 MG GT, (Reported) Discharge Statement: "Patient was advised to return to the ER or call 911 if any headaches, dizziness, shortness of breath, chest pain, abdominal pain, bleeding, fevers, or worsening of medical condition. Patient was counseled about treatment plan, medications, possible side effects, patientverbalized understanding. All questions were answered to the best of my ability. This discharge took greater then 30 minutes in planning, reviewing documentation, counseling the patient, and discussing with other team members." ASSESSMENT ASSESSMENT Assessment Visit Coding STANDARD RES Billing Provider: GISSELLE JOE MD Date of Service if different f: Jun 24, 2025 Common Visit Codes: 35350-RIM/OBS DISCH DAY >30min LORAINE ROSS RESIDENT Jun 24, 2025 13:00
== END 2025-06-24 10:24 | disposition left against medical advice (07) | DRG 432 ==
LOC: ER 21:20 → OVERFLOW 23:57 → WEST WING 06-22 11:46 → TELE-WESTW 06-22 14:57 → WEST WING 06-23 21:50 → TELE-WESTW 06-24 04:21
PROVIDERS: ADMIT Student in an Organized Health Care Education/Training Program; ATTEND Student in an Organized Health Care Education/Training Program
DX: K74.60 Unspecified cirrhosis of liver (principal); I85.01 Esophageal varices with bleeding; K70.9 Alcoholic liver disease, unspecified; N30.90 Cystitis, unspecified without hematuria; F84.0 Autistic disorder; E28.2 Polycystic ovarian syndrome; K76.0 Fatty (change of) liver, not elsewhere classified; Z20.822 Contact with and (suspected) exposure to COVID-19; Z53.29 Procedure and treatment not carried out because of patient's decision for other reasons; F41.9 Anxiety disorder, unspecified; F90.9 Attention-deficit hyperactivity disorder, unspecified type; K80.20 Calculus of gallbladder without cholecystitis without obstruction; R74.01 Elevation of levels of liver transaminase levels; Z86.59 Personal history of other mental and behavioral disorders; Z79.899 Other long term (current) drug therapy
CPT/HCPCS: 36415; 71045; 76705; 80053; 80307; 80320; 81001; 82105; 82140; 82248; 82270; 82607; 82728; 82746; 83540; 83550; 83735; 84100; 84702; 85014; 85018; 85025; 85045; 85610; 85730; 86850; 86900; 86901; 87086; 87426; 87493; 87804; 93005; G0378; J2405; J2470; J3430; J3490; J7060